=== PATIENT | female | born 1950 | race Caucasian/White ===

== ENCOUNTER 2018-08-14 16:44 | Inpatient (IN) ==
--- NOTE | 2018-08-14 17:42 | Emergency Department Note ---
Disposition Clinical Impression: Right arm pain, Right arm cellulitis Disposition: Admitted As Inpatient Condition: Good Time of Disposition: 18:56 General Adult HPI - General Chief complaint: ED Extremity Injury, Upper Stated complaint: Right arm knot,S/P surgery Time Seen by Provider: 08/14/18 16:49 Source: patient, family Limitations: no limitations Nursing Notes Reviewed: Yes Vital Signs Reviewed: Yes - History of Present Illness HPI Narrative: Patient is a 68-year-old female presenting with right arm pain. Patient had right humerus fracture in February, had right humeral fracture revision performed by Dr. Frias, in May. She states that this is been going well, however has yet to start PT. She states however today she noticed erythema with pain to the right upper extremity near the incision site. She states that she called Dr. Frias's office, they requested that she go to the ER for further evaluation and assessment. Patient states that she has had pain throughout the right shoulder, since the surgery, however over the past day this is significantly increased. Patient denies fever, chills, nausea, vomiting chest pain, shortness of breath or hemoptysis. Patient has no history of DVT or PE. She is being currently treated for active CML. She is not on a blood thinner. Family members in the room also states that the patient has had a white count, noted by PCP yesterday. Patient denies any active drainage or abscess near the location. No recent illness. Patient denies any weakness, numbness, tingling or change in sensation throughout the right arm. No trauma, no fall Pain Scale: 3 - Related Data Allergies Allergy/AdvReac Type Severity Reaction Status Date / Time latex AdvReac Blister Verified 08/15/18 10:18 ondansetron AdvReac "SEVERE Verified 08/15/18 10:18 HEADACHE" Sulfa (Sulfonamide AdvReac Rash, HIVES Verified 08/15/18 10:18 Antibiotics) All systems ED: reviewed and negative except as stated. Review of Systems: As Per HPI Constitutional: Denies: fever, chills, weakness, weight change ENT ED: Denies: ear pain, throat pain, dental pain, hearing loss, epistaxis, congestion, dysphagia Cardiovascular: Denies: chest pain, palpitations, dyspnea on exertion, edema, syncope Respiratory: Denies: cough, dyspnea, wheezes, hemoptysis, stridor Gastrointestinal: Denies: abdominal pain, nausea, vomiting, diarrhea, constipation, hematemesis, melena, hematochezia Genitourinary: Denies: dysuria, frequency, hematuria, discharge Musculoskeletal: Reports: other (Right arm pain and redness) Integumentary: Denies: rash, abrasion, lesions Neurological: Denies: headache, weakness, numbness, paresthesias, confusion, abnormal gait, vertigo Psychiatric: Denies: anxiety, depression, suicidal thoughts, homicidal thoughts, auditory hallucinations, visual hallucinations Endocrine: Denies: fatigue Hematological/Lymphatic: Denies: easy bleeding, easy bruising Past Medical History - Past Medical History Attestation: Yes The following information was validated with the patient. Source: patient Medical history: Reports: asthma, cancer, COPD, hyperlipidemia, hypertension, other Surgical history: Reports: cholecystectomy, other (gastric bypass) Psychiatric history: Reports: anxiety, depression - Social History Smoking Status: Never smoker Smokeless Tobacco Status: No Alcohol use: Reports: none Drug use: Reports: none Physical Exam - General Limitations: no limitations General appearance: alert, in no apparent distress - Head Head exam: atraumatic, normocephalic, normal inspection - Eye Eye exam: Present: normal appearance, PERRL, EOMI - ENT ENT exam: normal exam, normal oropharynx, mucous membranes moist - Neck Neck exam: Present: normal inspection, full ROM, trachea midline - Chest Chest inspection: Present: normal inspection, symmetric chest wall rise - Respiratory Respiratory exam: Present: normal lung sounds bilaterally. Absent: respiratory distress, wheezes - Cardiovascular Cardiovascular exam: Present: regular rate, normal rhythm, normal heart sounds - Abdominal Exam Abdominal exam: Present: soft, Non-Tender. Absent: tenderness, distention, guarding, rebound, rigidity - Extremities Exam Extremities exam: Present: normal capillary refill, other (Patient has incision scar along the right anterior shoulder, there is no erythema or redness along the incision scar, appears to be well healing, just distal to this there is a 3 x 3 cm region of induration and erythema with tenderness to palpation and warmth, no fluctuance ) - Expanded Lower Extremity Exam Neurovascular/Tendon exam: Absent: motor deficit, sensory deficit, tendon deficit - Back Exam Back exam: Present: normal inspection, full ROM. Absent: tenderness - Neurological Exam Neurological exam: Present: alert, oriented X3 - Psychiatric Psychiatric exam: Present: normal affect, normal mood - Skin Skin exam: Present: warm, dry, intact, normal color Course Vital Signs Temperature 98.6 F 08/14/18 16:54 Pulse Rate 67 08/14/18 16:54 Respiratory Rate 16 08/14/18 16:54 Blood Pressure 145/81 08/14/18 16:54 O2 Sat by Pulse Oximetry 98 08/14/18 16:54 Temperature 98.6 F 08/14/18 17:08 Pulse Rate 67 08/14/18 17:08 Respiratory Rate 16 08/14/18 17:08 Blood Pressure 145/81 08/14/18 17:08 O2 Sat by Pulse Oximetry 98 08/14/18 17:08 Oxygen Delivery Oxygen Delivery Room Air Medical Decision Making - MDM Narrative Medical decision making narrative: Patient is a 68-year-old female presenting with right upper arm swelling and pain. Patient is status post right humeral fracture revision by Dr. hampton, this performed in May, fracture occurred in February. Patient states that she has had one day of swelling and redness to the right anterior arm. She states that her PCP checked her blood work yesterday and she had a leukocytosis of 15. She denies fever or chills. She states she does have pain to the area. She does not have any weakness, numbness or chilling. On examination there is a 3 cm x 3 cm erythematous and warm location to the anterior right arm. No focal neurological signs or symptoms. Venous ultrasound was performed, remarked to be negative for DVT or SVT. X-ray was performed of the right humerus which shows concern for hardware infection. CT with contrast was performed. CBC does show a slight leukocytosis of 13. We will start her on vancomycin and cefepime. At this point in time, patient has been signed out to the evening team. Please refer to their MDM and further disposition and evaluation. Suspect this patient will be admitted for further evaluation and treatment and will need orthopedic consult. - Medical Records Medical records reviewed: Yes I reviewed the patient's medical records. - Lab Data Lab results reviewed: Yes I reviewed the patient's lab results. Result diagrams: 08/16/18 04:58 08/16/18 04:58 Lab Results 08/14/18 08/14/18 08/14/18 Range/Units 17:53 17:53 17:53 WBC 13.7 H (4.3-11.1) K/mcL RBC 3.68 L (3.82-4.97) M/mcL Hgb 10.2 L (11.5-15.4) g/dL Hct 31.5 L (35.3-44.9) % MCV 85.6 (83.0-100.0) fL MCH 27.7 L (28.0-33.3) pg MCHC 32.4 (31.6-35.5) g/dL RDW 14.3 (11.5-14.5) % Plt Count 250 (140-400) K/mcL MPV 10.3 (9.4-12.4) fL Immature Gran % 0.4 (0-4) % Seg Neutrophils % 77.9 % Lymphocytes % 14.4 % Monocytes % 6.3 % Eosinophils % 0.8 % Basophils % 0.2 % Neutrophils # 10.6 H (1.6-8.9) K/mcL Lymphocytes # 2.0 (0.6-4.6) K/mcL Monocytes # 0.9 (0.0-1.3) K/mcL Eosinophils # 0.1 (0.0-0.6) K/mcL Basophils # 0.0 (0.0-0.2) K/mcL ESR 34 H (0-15) mm/hr PT 11.1 (9.4-12.1) Seconds INR 1.0 APTT 34.1 (26.0-36.0) Seconds Sodium (136-145) mEq/L Potassium (3.5-5.1) mEq/L Chloride (98-107) mEq/L Carbon Dioxide (23-29) mEq/L BUN (8-23) mg/dL Creatinine (0.60-1.20) mg/dL Est GFR ( Amer) (> 60) Est GFR (Non-Af Amer) (> 60) BUN/Creatinine Ratio (6-26) Glucose (70-105) mg/dL Calculated Osmolality (280-300) Calcium (8.6-10.3) mg/dL C-Reactive Protein (Less than 10) mg/L 08/14/18 Range/Units 17:53 WBC (4.3-11.1) K/mcL RBC (3.82-4.97) M/mcL Hgb (11.5-15.4) g/dL Hct (35.3-44.9) % MCV (83.0-100.0) fL MCH (28.0-33.3) pg MCHC (31.6-35.5) g/dL RDW (11.5-14.5) % Plt Count (140-400) K/mcL MPV (9.4-12.4) fL Immature Gran % (0-4) % Seg Neutrophils % % Lymphocytes % % Monocytes % % Eosinophils % % Basophils % % Neutrophils # (1.6-8.9) K/mcL Lymphocytes # (0.6-4.6) K/mcL Monocytes # (0.0-1.3) K/mcL Eosinophils # (0.0-0.6) K/mcL Basophils # (0.0-0.2) K/mcL ESR (0-15) mm/hr PT (9.4-12.1) Seconds INR APTT (26.0-36.0) Seconds Sodium 139 (136-145) mEq/L Potassium 4.5 (3.5-5.1) mEq/L Chloride 106 (98-107) mEq/L Carbon Dioxide 26 (23-29) mEq/L BUN 22 (8-23) mg/dL Creatinine 0.85 (0.60-1.20) mg/dL Est GFR ( Amer) > 60 (> 60) Est GFR (Non-Af Amer) > 60 (> 60) BUN/Creatinine Ratio 26 (6-26) Glucose 107 H (70-105) mg/dL Calculated Osmolality 292 (280-300) Calcium 9.2 (8.6-10.3) mg/dL C-Reactive Protein 13 H (Less than 10) mg/L - Radiology Data Radiology results reviewed: Yes I reviewed the patient's radiology results. Humerus X-Ray 08/14/18 17:38 IMPRESSION: Lateral soft tissue swelling with some patchy lucency of the proximal humerus. Findings are concerning for hardware infection. Consider CT or tagged white blood cell study for further evaluation. D/ / Willie Winn / Willie Winn Interpreting Provider: Willie Winn S.B.ATeodoraR. - Maida Situation: Demographics, MOA Background: Presenting Complaint, Relevant PMH, Meds, & Allergies Assessment: Vital Signs, Course and respsone to treatment, Exam Concerns, P atient/Family Expectation, Pertinant Lab Results, Outstanding Labs Recommendation: Barrier(s) to disposition, Recommendation based on pending studies, treatments, or consults Maida Report Given to: Dr. Acevedo and Dr. Morris Bey Repor Time: 18:57 Attestation Statement - Attestation Attestation: I, Tyler Bhatti, examined this patient and my medical decision-making was reviewed with the DIRECTOR TEEN POST/PA/Advanced Practice Nurse/Resident Physician. I agree with the documented findings, disposition and treatment plan as described except to the extent set forth below. 68-year-old female presents emergency Department with concerns of pain to the right upper shoulder. Patient is status post reconstruction of the right humeral head 2-3 months ago. Patient states within the past 24 hours she developed erythema, edema, pain to the right proximal upper extremity. Denies recent trauma. Denies fever, chills, nausea, vomiting, diarrhea. Denies chest pain or shortness of breath or palpitations. There is no syncopal episodes. Unlikely a PE. No history of PE in the past. Does not take anticoagulant medication. Ultrasound of the right upper extremity was negative for DVT or SVT. Laboratory evaluation did not reveal significant abnormality other than mild leukocytosis and mild anemia. CT of the right shoulder pending for further evaluation of possible osteomyelitis versus fracture. Patient care will be transferred to Dr. Acevedo pending imaging results and disposition.
[2018-08-14 18:07] LABS: Basophils % 0.2 %; Eosinophils # 0.1 K/mcL (0.0-0.6); Eosinophils % 0.8 %; Hematocrit 31.5 % (35.3-44.9); Hemoglobin 10.2 g/dL (11.5-15.4); Immature Granulocytes % 0.4 % (0-4); Lymphocytes % 14.4 %; Mean Corpuscular HGB Conc 32.4 g/dL (31.6-35.5); Mean Corpuscular Hemoglobin 27.7 pg (28.0-33.3); Mean Corpuscular Volume 85.6 fL (83.0-100.0); Mean Platelet Volume 10.3 fL (9.4-12.4); Monocytes # 0.9 K/mcL (0.0-1.3); Monocytes % 6.3 %; Neutrophils # 10.6 K/mcL (1.6-8.9); Platelet Count 250 K/mcL (140-400); Red Blood Count 3.68 M/mcL (3.82-4.97); Red Cell Distribution Width 14.3 % (11.5-14.5); Segmented Neutrophils % 77.9 %
[2018-08-14 18:14] LABS: Prothrombin Time 11.1 Seconds (9.4-12.1)
[2018-08-14 18:17] LABS: Activated Partial Thrombo Time 34.1 Seconds (26.0-36.0)
[2018-08-14 18:28] LABS: BUN/Creatinine Ratio 26 (6-26); Blood Urea Nitrogen 22 mg/dL (8-23); C-Reactive Protein 13 mg/L (Less than 10); Calcium 9.2 mg/dL (8.6-10.3); Carbon Dioxide 26 mEq/L (23-29); Chloride 106 mEq/L (98-107); Glucose 107 mg/dL (70-105); Osmolality,Calculated 292 (280-300); Potassium 4.5 mEq/L (3.5-5.1); Sodium 139 mEq/L (136-145); eGFR For Non-African Americans > 60 (> 60)
[2018-08-14] MEDS ORDERED: Isovue-370 500 ML BOTTLE IVP ONE (18:34)
[2018-08-14] MEDS ORDERED: Piperacillin/Tazobactam 3.375 GM in 0.9 % Sodium Chloride Mini Bag 100 ML IVPB ONE (20:10)
--- NOTE | 2018-08-14 20:13 | Emergency Department Note ---
Disposition Clinical Impression: Right arm pain, Right arm cellulitis Disposition: Admitted As Inpatient Condition: Good Referrals: Nolberto Temple DO [Primary Care Provider] - Forms: ED Satisfaction Letter General Adult HPI - General Chief complaint: ED Extremity Injury, Upper Stated complaint: Right arm knot,S/P surgery Time Seen by Provider: 08/14/18 16:49 Source: patient, family Limitations: no limitations - History of Present Illness Pain Scale: 3 - Related Data Allergies Allergy/AdvReac Type Severity Reaction Status Date / Time latex AdvReac Blister Verified 08/14/18 16:57 ondansetron AdvReac Headache Verified 08/14/18 16:57 Sulfa (Sulfonamide AdvReac Rash Verified 08/14/18 16:57 Antibiotics) Constitutional: Denies: fever, chills, weakness, weight change ENT ED: Denies: ear pain, throat pain, dental pain, hearing loss, epistaxis, congestion, dysphagia Cardiovascular: Denies: chest pain, palpitations, dyspnea on exertion, edema, syncope Respiratory: Denies: cough, dyspnea, wheezes, hemoptysis, stridor Gastrointestinal: Denies: abdominal pain, nausea, vomiting, diarrhea, constipation, hematemesis, melena, hematochezia Genitourinary: Denies: dysuria, frequency, hematuria, discharge Musculoskeletal: Reports: other (Right arm pain and redness) Integumentary: Denies: rash, abrasion, lesions Neurological: Denies: headache, weakness, numbness, paresthesias, confusion, abnormal gait, vertigo Psychiatric: Denies: anxiety, depression, suicidal thoughts, homicidal thoughts, auditory hallucinations, visual hallucinations Endocrine: Denies: fatigue Hematological/Lymphatic: Denies: easy bleeding, easy bruising Past Medical History - Past Medical History Medical history: Reports: asthma, cancer, COPD, hyperlipidemia, hypertension, other Surgical history: Reports: cholecystectomy, other (gastric bypass) Psychiatric history: Reports: anxiety, depression - Social History Smoking Status: Never smoker Smokeless Tobacco Status: No Alcohol use: Reports: none Drug use: Reports: none Physical Exam - General Limitations: no limitations General appearance: alert, in no apparent distress Course Vital Signs Temperature 98.6 F 08/14/18 16:54 Pulse Rate 67 08/14/18 16:54 Respiratory Rate 16 08/14/18 16:54 Blood Pressure 145/81 08/14/18 16:54 O2 Sat by Pulse Oximetry 98 08/14/18 16:54 Temperature 98.6 F 08/14/18 17:08 Pulse Rate 67 08/14/18 17:08 Respiratory Rate 16 08/14/18 17:08 Blood Pressure 145/81 08/14/18 17:08 O2 Sat by Pulse Oximetry 98 08/14/18 17:08 Oxygen Delivery Oxygen Delivery Room Air Medical Decision Making - Lab Data Result diagrams: 08/14/18 17:53 08/14/18 17:53 Lab Results 08/14/18 08/14/18 08/14/18 Range/Units 17:53 17:53 17:53 WBC 13.7 H (4.3-11.1) K/mcL RBC 3.68 L (3.82-4.97) M/mcL Hgb 10.2 L (11.5-15.4) g/dL Hct 31.5 L (35.3-44.9) % MCV 85.6 (83.0-100.0) fL MCH 27.7 L (28.0-33.3) pg MCHC 32.4 (31.6-35.5) g/dL RDW 14.3 (11.5-14.5) % Plt Count 250 (140-400) K/mcL MPV 10.3 (9.4-12.4) fL Immature Gran % 0.4 (0-4) % Seg Neutrophils % 77.9 % Lymphocytes % 14.4 % Monocytes % 6.3 % Eosinophils % 0.8 % Basophils % 0.2 % Neutrophils # 10.6 H (1.6-8.9) K/mcL Lymphocytes # 2.0 (0.6-4.6) K/mcL Monocytes # 0.9 (0.0-1.3) K/mcL Eosinophils # 0.1 (0.0-0.6) K/mcL Basophils # 0.0 (0.0-0.2) K/mcL ESR 34 H (0-15) mm/hr PT 11.1 (9.4-12.1) Seconds INR 1.0 APTT 34.1 (26.0-36.0) Seconds Sodium (136-145) mEq/L Potassium (3.5-5.1) mEq/L Chloride (98-107) mEq/L Carbon Dioxide (23-29) mEq/L BUN (8-23) mg/dL Creatinine (0.60-1.20) mg/dL Est GFR ( Amer) (> 60) Est GFR (Non-Af Amer) (> 60) BUN/Creatinine Ratio (6-26) Glucose (70-105) mg/dL Calculated Osmolality (280-300) Calcium (8.6-10.3) mg/dL C-Reactive Protein (Less than 10) mg/L 08/14/18 Range/Units 17:53 WBC (4.3-11.1) K/mcL RBC (3.82-4.97) M/mcL Hgb (11.5-15.4) g/dL Hct (35.3-44.9) % MCV (83.0-100.0) fL MCH (28.0-33.3) pg MCHC (31.6-35.5) g/dL RDW (11.5-14.5) % Plt Count (140-400) K/mcL MPV (9.4-12.4) fL Immature Gran % (0-4) % Seg Neutrophils % % Lymphocytes % % Monocytes % % Eosinophils % % Basophils % % Neutrophils # (1.6-8.9) K/mcL Lymphocytes # (0.6-4.6) K/mcL Monocytes # (0.0-1.3) K/mcL Eosinophils # (0.0-0.6) K/mcL Basophils # (0.0-0.2) K/mcL ESR (0-15) mm/hr PT (9.4-12.1) Seconds INR APTT (26.0-36.0) Seconds Sodium 139 (136-145) mEq/L Potassium 4.5 (3.5-5.1) mEq/L Chloride 106 (98-107) mEq/L Carbon Dioxide 26 (23-29) mEq/L BUN 22 (8-23) mg/dL Creatinine 0.85 (0.60-1.20) mg/dL Est GFR ( Amer) > 60 (> 60) Est GFR (Non-Af Amer) > 60 (> 60) BUN/Creatinine Ratio 26 (6-26) Glucose 107 H (70-105) mg/dL Calculated Osmolality 292 (280-300) Calcium 9.2 (8.6-10.3) mg/dL C-Reactive Protein 13 H (Less than 10) mg/L Critical Care Time Critical Care Time: Yes Total Critical Care Time: 40 Attestation: Critical care time of 40 minutes spent in consultation and meeting with family members for over 30 minutes Attestation Statement - Attestation Attestation: I examined this patient and my medical decision-making was reviewed with the Resident Physician. I agree with the documented findings, disposition and treatment plan as described except to the extent set forth below. 68-year-old female presented to the emergency room for concerns for right arm redness and pain. Started earlier today spontaneously. She had a recent right humeral head were repair done by orthopedics up in [place]. She had suffered a right humeral head fracture in February and had this repaired many months later. It appears as though she has developed a right upper extremity cellulitis with some increasing redness and pain and swelling to this right upper extremity. Concerns for possible hardware infection however the CT was not conclusive. They were unable to decipher whether she had any findings of infection versus postoperative findings. Patient does have a complicated history. She reports a history of C. difficile colitis secondary to antibiotics in the past. At this time the family would like to stay for observation and I am in agreement with needing IV antibiotics based on her history and the fact that she has got underlying hardware in this region that could be infected. Patient will be given IV vancomycin and IV Zosyn. Blood cultures were obtained. I did have a [id number] conversation with the patient and her family members for over 30 minutes in the room. The area of redness the right upper extremity will be outlined with a marker to assess any further spreading cellulitis.
--- NOTE | 2018-08-14 20:16 | Emergency Department Note ---
Disposition Clinical Impression: Right arm pain, Right arm cellulitis Disposition: Admitted As Inpatient Condition: Good Referrals: Nolberto Temple DO [Primary Care Provider] - Forms: ED Satisfaction Letter General Adult HPI - General Chief complaint: ED Extremity Injury, Upper Stated complaint: Right arm knot,S/P surgery Time Seen by Provider: 08/14/18 16:49 Source: patient, family Limitations: no limitations Nursing Notes Reviewed: Yes Vital Signs Reviewed: Yes - History of Present Illness HPI Narrative: 68 yo female received in sign out from Dr. Stafford and Dr. Bhatti. She has a PMHx of CML, C. diff colitis, and joint infections after surgery. She presents with a painful right arm with overlying erythema. She had a right proximal humeral head repair done in May by Dr. Tovar. She has an appointment with him on Monday but when she called today he told her to come be evaluated for a blood clot or infection. She has not had fevers at home and is not nauseous or vomiting. Pain Scale: 3 - Related Data Allergies Allergy/AdvReac Type Severity Reaction Status Date / Time latex AdvReac Blister Verified 08/14/18 16:57 ondansetron AdvReac Headache Verified 08/14/18 16:57 Sulfa (Sulfonamide AdvReac Rash Verified 08/14/18 16:57 Antibiotics) All systems ED: reviewed and negative except as stated. Review of Systems: As Per HPI Constitutional: Denies: fever, chills, weakness, weight change ENT ED: Denies: ear pain, throat pain, dental pain, hearing loss, epistaxis, congestion, dysphagia Cardiovascular: Denies: chest pain, palpitations, dyspnea on exertion, edema, syncope Respiratory: Denies: cough, dyspnea, wheezes, hemoptysis, stridor Gastrointestinal: Denies: abdominal pain, nausea, vomiting, diarrhea, constipation, hematemesis, melena, hematochezia Genitourinary: Denies: dysuria, frequency, hematuria, discharge Musculoskeletal: Reports: other (Right arm pain and redness) Integumentary: Denies: rash, abrasion, lesions Neurological: Denies: headache, weakness, numbness, paresthesias, confusion, abn ormal gait, vertigo Psychiatric: Denies: anxiety, depression, suicidal thoughts, homicidal thoughts, auditory hallucinations, visual hallucinations Endocrine: Denies: fatigue Hematological/Lymphatic: Denies: easy bleeding, easy bruising Past Medical History - Past Medical History Medical history: Reports: asthma, cancer, COPD, hyperlipidemia, hypertension, other Surgical history: Reports: cholecystectomy, other (gastric bypass) Psychiatric history: Reports: anxiety, depression - Social History Smoking Status: Never smoker Smokeless Tobacco Status: No Alcohol use: Reports: none Drug use: Reports: none Physical Exam Well circumscribed area of erythema on distal lateral right upper arm that is warm to the touch. Pt has pain with movement of the extremity. No area of fluctuance, crepatance, or notable drainage. The Wound from the surgery appears well healed without drainage and the area of erythema does not connect to the scar. Pt has normal sensation of distal right arm and hand. - General Limitations: no limitations General appearance: alert, in no apparent distress - Head Head exam: atraumatic, normocephalic - Eye Eye exam: Present: normal appearance, PERRL, EOMI - ENT ENT exam: normal exam - Chest Chest inspection: Present: normal inspection - Respiratory Respiratory exam: Present: normal lung sounds bilaterally - Cardiovascular Cardiovascular exam: Present: regular rate, normal rhythm - Abdominal Exam Abdominal exam: Present: soft, Non-Tender. Absent: distention, guarding, rebound, rigidity - Neurological Exam Neurological exam: Present: alert, oriented X3 - Psychiatric Psychiatric exam: Present: normal affect, normal mood - Skin Skin exam: Present: warm, dry Course Vital Signs Temperature 98.6 F 08/14/18 16:54 Pulse Rate 67 08/14/18 16:54 Respiratory Rate 16 08/14/18 16:54 Blood Pressure 145/81 08/14/18 16:54 O2 Sat by Pulse Oximetry 98 08/14/18 16:54 Temperature 98.6 F 08/14/18 17:08 Pulse Rate 67 08/14/18 17:08 Respiratory Rate 16 08/14/18 17:08 Blood Pressure 145/81 08/14/18 17:08 O2 Sat by Pulse Oximetry 98 08/14/18 17:08 Oxygen Delivery Oxygen Delivery Room Air Medical Decision Making - MDM Narrative Medical decision making narrative: Pt received after workup had been started on this patient, which included lab work and a RUE XR showing signs concerning for infection. CT soft tissue has been ordered and is pending, and blood cultures will be drawn. 2021 - Lab work significant for an elevated WBC and CRP. CT scan shows possible area of infection vs post surgical changes. A lengthy conversation was had with the patient and her daughter about admission with IV antibiotics vs transfer to [facility] vs DC on oral abx with ortho follow up. The family is worried about recurrence of C. diff with administration of antibiotics but are also worried about progressing infection which will eventually involve the hardware. They are agreeable at this time to admit the patient on vancomycin and zosyn as the erythema has spread since this morning and the arm is causing the patient significant pain. We will sebas the area of erythema and begin antibiotics. Hospitalist has been paged for admission. 2031 - Dr. Martinez has accepted the patient for admission. - Medical Records Medical records reviewed: Yes I reviewed the patient's medical records. - Lab Data Lab results reviewed: Yes I reviewed the patient's lab results. Result diagrams: 08/14/18 17:53 08/14/18 17:53 Lab Results 08/14/18 08/14/18 08/14/18 Range/Units 17:53 17:53 17:53 WBC 13.7 H (4.3-11.1) K/mcL RBC 3.68 L (3.82-4.97) M/mcL Hgb 10.2 L (11.5-15.4) g/dL Hct 31.5 L (35.3-44.9) % MCV 85.6 (83.0-100.0) fL MCH 27.7 L (28.0-33.3) pg MCHC 32.4 (31.6-35.5) g/dL RDW 14.3 (11.5-14.5) % Plt Count 250 (140-400) K/mcL MPV 10.3 (9.4-12.4) fL Immature Gran % 0.4 (0-4) % Seg Neutrophils % 77.9 % Lymphocytes % 14.4 % Monocytes % 6.3 % Eosinophils % 0.8 % Basophils % 0.2 % Neutrophils # 10.6 H (1.6-8.9) K/mcL Lymphocytes # 2.0 (0.6-4.6) K/mcL Monocytes # 0.9 (0.0-1.3) K/mcL Eosinophils # 0.1 (0.0-0.6) K/mcL Basophils # 0.0 (0.0-0.2) K/mcL ESR 34 H (0-15) mm/hr PT 11.1 (9.4-12.1) Seconds INR 1.0 APTT 34.1 (26.0-36.0) Seconds Sodium (136-145) mEq/L Potassium (3.5-5.1) mEq/L Chloride (98-107) mEq/L Carbon Dioxide (23-29) mEq/L BUN (8-23) mg/dL Creatinine (0.60-1.20) mg/dL Est GFR ( Amer) (> 60) Est GFR (Non-Af Amer) (> 60) BUN/Creatinine Ratio (6-26) Glucose (70-105) mg/dL Calculated Osmolality (280-300) Calcium (8.6-10.3) mg/dL C-Reactive Protein (Less than 10) mg/L 08/14/18 Range/Units 17:53 WBC (4.3-11.1) K/mcL RBC (3.82-4.97) M/mcL Hgb (11.5-15.4) g/dL Hct (35.3-44.9) % MCV (83.0-100.0) fL MCH (28.0-33.3) pg MCHC (31.6-35.5) g/dL RDW (11.5-14.5) % Plt Count (140-400) K/mcL MPV (9.4-12.4) fL Immature Gran % (0-4) % Seg Neutrophils % % Lymphocytes % % Monocytes % % Eosinophils % % Basophils % % Neutrophils # (1.6-8.9) K/mcL Lymphocytes # (0.6-4.6) K/mcL Monocytes # (0.0-1.3) K/mcL Eosinophils # (0.0-0.6) K/mcL Basophils # (0.0-0.2) K/mcL ESR (0-15) mm/hr PT (9.4-12.1) Seconds INR APTT (26.0-36.0) Seconds Sodium 139 (136-145) mEq/L Potassium 4.5 (3.5-5.1) mEq/L Chloride 106 (98-107) mEq/L Carbon Dioxide 26 (23-29) mEq/L BUN 22 (8-23) mg/dL Creatinine 0.85 (0.60-1.20) mg/dL Est GFR ( Amer) > 60 (> 60) Est GFR (Non-Af Amer) > 60 (> 60) BUN/Creatinine Ratio 26 (6-26) Glucose 107 H (70-105) mg/dL Calculated Osmolality 292 (280-300) Calcium 9.2 (8.6-10.3) mg/dL C-Reactive Protein 13 H (Less than 10) mg/L - Radiology Data Radiology results reviewed: Yes I reviewed the patient's radiology results.
[2018-08-14] MEDS ORDERED: Acetaminophen 325 MG TABLET PO PRN (21:40)
[2018-08-14] MEDS ORDERED: Naloxone 0.4 MG/ML INJ IVP PRN (21:40)
[2018-08-14] MEDS ORDERED: *HR* HYDROcodone/Acet 5/325 mg TABLET PO PRN (21:40)
[2018-08-14] MEDS ORDERED: Ringers Solution, Lactated 1,000 ML IVC SCH (21:45)
[2018-08-14] MEDS ORDERED: ALPRAZolam 1 MG TABLET PO PRN (22:37)
[2018-08-14] MEDS: Gabapentin 100 MG CAPSULE PO SCH (22:56)
[2018-08-14] MEDS: *HR* Heparin 5,000 UNIT/ML VIAL SQ SCH (22:56)
[2018-08-14] MEDS: Lactobacillus 1 EACH CAP.SPRINK PO SCH (22:56)
[2018-08-14] MEDS: *HR* OxyCODONE/APAP 5/325 TABLET PO PRN (22:57)
[2018-08-14] MEDS: Vancomycin Oral Soln 125 MG/2.5 ML UDC PO SCH (22:57)
[2018-08-14] MEDS: BOSUTINIB PO SCH (22:57)
--- NOTE | 2018-08-14 23:03 | Internal Med History&Physical ---
Date of Encounter: 08/14/18 Time of Encounter: 23:00 Internal Medicine - H&P: HPI Chief complaint: right arm pain/swelling Admitted From: Home Plans for Post Hospital Care: Home History of present illness: Nishi Monroy is a 68-year-old woman with CML on bosutinib and sarcoidosis on prednisone who has a history of TKA many years ago and suffered a post-surgical hardware infection. She also suffered from C. difficile colitis 2 years ago. She had a fracture of the proximal aspect of her right humerus in January 2018 but did not undergo surgical intervention until May 2018 with a lateral plate and screw fixation. She comes into the ER on advised by her orthopedic surgeon after she complained of noticing erythema on her right arm as well as pain with limitation in her shoulder joint movement due to new pain. As per her daughter these findings increased from yesterday until today. She denied any fever or chills however and there is no active drainage or abscess formation. In the ER duplex ultrasonography was done and ruled out venous thrombotic disease. An x-ray was done that confirmed lateral soft tissue swelling but also patchy lucencies around the hardware that are concerning for a n infectious process. The suspicious lucencies were also noted on CT scan prompting concern for an infectious process. Lab work revealed her leukocyte count of 13.7, ESR 34 and CRP 13. She was started on broad-spectrum antibiotics and is now admitted for further observation. Past Med Surg Social Fam HX - Past Medical History Medical history: asthma, cancer, COPD, hyperlipidemia, hypertension, other Additional medical history: CML Ca, breast CA Psychiatric history: anxiety, depression - Past Surgical History Surgical History: cholecystectomy, other (gastric bypass) Additional surgical history: Michael repair - Social History Smoking Status: Never smoker Smokeless Tobacco Status: No Alcohol use: none Drug use: none Internal Medicine - H&P: Meds ALPRAZolam [Xanax 1 MG Tablet] 1 mg PO BID PRN 08/14/18 [History] Bosutinib [Bosulif] 200 mg PO HS 08/14/18 [History] Folic Acid 5 mg PO DAILY 08/14/18 [History] Gabapentin [Neurontin] 100 mg PO TID 08/14/18 [History] Levothyroxine [Synthroid] 150 mcg PO DAILY 08/14/18 [History] Oxycodone HCl/Acetaminophen [Percocet 5-325 mg Tablet] 1 each PO QID PRN 08/14/18 [History] Sertraline [Zoloft] 50 mg PO DAILY 08/14/18 [History] Allergy/AdvReac Type Severity Reaction Status Date / Time latex AdvReac Blister Verified 08/14/18 16:57 ondansetron AdvReac Headache Verified 08/14/18 16:57 Sulfa (Sulfonamide AdvReac Rash Verified 08/14/18 16:57 Antibiotics) All Systems PM: A 10-system review of systems was performed and is negative for pertinent findings except as documented above in the HPI. Family history reviewed and fo und noncontributory. - Constitutional Vitals: Temp Pulse Resp BP Pulse Ox 97.7 F 59 16 156/75 98 08/14/18 21:33 08/14/18 21:33 08/14/18 21:33 08/14/18 21:33 08/14/18 21:33 Exam: Vitals: Reviewed General: Well-developed white female lying comfortably in bed in no acute distress. Skin: Warm and supple. HEENT: Moist mucous membranes. No conjunctivae pallor. Neck: No lymphadenopathy. No JVD. No carotid bruits. No palpable thyroid. Chest: Normal thoracic expansion. Normal breath sounds. Clear to auscultation. Heart: Normal S1 & S2; rhythmic. No rubs or murmurs. Abdomen: Non-distended, soft and non-tender to palpation. No peritoneal reaction. Extremities: Right shoulder surgical incision site without erythema or swelling but limited joint motion due to pain is noted; 3x3cm area of erythema, fluctuance and tenderness noted on the lateral aspect of the midportion of the right arm. Neurological: Awake, alert and oriented to person, place and time. No focal deficits. Psych: Affect appropriate. Internal Med - H&P Results - Labs CBC & Chem 7: 08/14/18 17:53 08/14/18 17:53 Labs: Short CBC 08/14/18 Range/Units 17:53 WBC 13.7 H (4.3-11.1) K/mcL Hgb 10.2 L (11.5-15.4) g/dL Hct 31.5 L (35.3-44.9) % Plt Count 250 (140-400) K/mcL Neutrophils # 10.6 H (1.6-8.9) K/mcL BMP 08/14/18 17:53 Sodium 139 Potassium 4.5 Chloride 106 Carbon Dioxide 26 BUN 22 Creatinine 0.85 Glucose 107 H Calcium 9.2 - Impressions ITS Impressions Humerus X-Ray 08/14/18 17:38 IMPRESSION: Lateral soft tissue swelling with some patchy lucency of the proximal humerus. Findings are concerning for hardware infection. Consider CT or tagged white blood cell study for further evaluation. D/ / Willie Winn / Willie Winn Interpreting Provider: Willie Winn Upper Extremity CT 08/14/18 18:34 IMPRESSION: 1. Lucencies surrounding portions of fixating screws proximally. These could be related to hardware infection but could also reflect sequela of previously placed fixating screws. To differentiate these entities, a combined sulfur colloid and tagged white blood cell study are advised to evaluate for infectious process; MRI would be less sensitive due to the presence of hardware and expected susceptibility artifact. 2. Mild nonspecific soft tissue swelling is evident. 3. No fluid collection or foci of soft tissue air. D/ / 08/14/2018 19:48:32 Willie Winn / jonathan Interpreting Provider: Willie Winn - Assessment and plan (1) Right arm cellulitis Current Visit: Yes Status: Acute Assessment and plan: Complicated cellulitis given the presence of underlying hardware that could potentially be infected given the radiographic changes noted. She is not with florid sigs of sepsis and concerns for decompensation. Her inflammatory markers are not overly elevated. Orthopedic surgery has been consulted and the patient will be seen in the morning. In the interim continue empric abx with vancomycin/piptazo; blood cultures collected. (2) CML (chronic myelocytic leukemia) Current Visit: Yes Status: Acute Assessment and plan: Will continue daily bosutinib; patient to bring medication from home. (3) Sarcoid Current Visit: Yes Status: Acute Assessment and plan: Patient reportedly takes 5mg prednisone daily; pending confirmation. (4) History of Clostridium difficile colitis Current Visit: Yes Status: Acute Assessment and plan: No signs of active disease however given her prior history and current need for empiric antimicrobials, will initiate prophylaxis with oral vancomycin BID dosing. The patient also reports personal success and tolerance to probioics therefore this can be given too. - Time Spent With Patient Total time spent is greater than 50% in coordination of care (as documented) at patient's floor/unit and/or counseling patient: Greater than 35 minutes
[2018-08-15 05:27] LABS: Basophils % 0.3 %; Eosinophils # 0.4 K/mcL (0.0-0.6); Eosinophils % 2.9 %; Hematocrit 28.6 % (35.3-44.9); Hemoglobin 9.4 g/dL (11.5-15.4); Immature Granulocytes % 0.3 % (0-4); Lymphocytes % 23.6 %; Mean Corpuscular HGB Conc 32.9 g/dL (31.6-35.5); Mean Corpuscular Hemoglobin 27.9 pg (28.0-33.3); Mean Corpuscular Volume 84.9 fL (83.0-100.0); Mean Platelet Volume 10.2 fL (9.4-12.4); Monocytes % 7.5 %; Neutrophils # 8.3 K/mcL (1.6-8.9); Platelet Count 249 K/mcL (140-400); Red Blood Count 3.37 M/mcL (3.82-4.97); Red Cell Distribution Width 14.3 % (11.5-14.5); Segmented Neutrophils % 65.4 %
[2018-08-15 05:48] LABS: BUN/Creatinine Ratio 22 (6-26); Blood Urea Nitrogen 18 mg/dL (8-23); Calcium 8.7 mg/dL (8.6-10.3); Carbon Dioxide 25 mEq/L (23-29); Chloride 109 mEq/L (98-107); Glucose 88 mg/dL (70-105); Osmolality,Calculated 293 (280-300); Potassium 3.8 mEq/L (3.5-5.1); Sodium 141 mEq/L (136-145); eGFR For Non-African Americans > 60 (> 60)
[2018-08-15] MEDS: Piperacillin/Tazobactam 3.375 GM in 0.9 % Sodium Chloride Mini Bag 100 ML IVPB SCH ×3 (06:17→23:05)
[2018-08-15] MEDS: *HR* Heparin 5,000 UNIT/ML VIAL SQ SCH ×3 (06:18→20:59)
--- NOTE | 2018-08-15 07:48 | Orthopedic Consult Note ---
Date of Encounter: 08/15/18 Time of Encounter: 07:44 Assessment and Plan (1) Right arm cellulitis Current Visit: Yes Status: Acute I did have a discussion with the patient regarding the diagnosis. She does at least have a superficial cellulitis of her right arm which may involve the hardware as well. Options include antibiotics and observation versus exploration with debridement and deep cultures. I will discuss the case with Dr. Frias to see how he would like to proceed, which may include antibiotics and careful follow-up with him on Monday. A page has been placed out to his answering service and I am waiting for her applied. I will update the plan as new information comes in. History of Present Illness HPI: Ms. Monroy is a 68 year old female who is currently admitted to the hospitalist. She does have a history of a right proximal humerus fracture which happened in the summer. She underwent open reduction and internal fixation in late May [address] Frias at [facility]. She indicates that her postoperative recovery has been uneventful and she has a follow-up visit with Dr. Frias on Monday of this week. The patient indicates that over the last day or 2 she has noticed pain and redness just distal to her incision. The patient informs me that she called Dr. Frias and was instructed to go to the [place] emergency department. The patient was subsequently admitted to the hospitalist with concerns for infected hardware. I did receive a consult last night after the patient had been on the floor. Upon evaluating the patient this morning she complains of isolated achy pains localized to the incisional area as well as just distal to this. She feels tightness with any motion of the shoulder but no significant pain. She denies any new injuries or complaints. She denies any numbness, tingling, or any other associated signs or symptoms or modifying factors. 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 She fully recovered from this without significant long-term sequelae. Past Med Surg Social Fam HX - Past Medical History Medical history: asthma, cancer, COPD, hyperlipidemia, hypertension, other Additional medical history: CML Ca, breast CA Psychiatric history: anxiety, depression - Past Surgical History Surgical History: cholecystectomy, other Additional surgical history: Michael repair - Social History Smoking Status: Never smoker Smokeless Tobacco Status: No Alcohol use: none Drug use: none - Family History Mother Age at : 54 Cause of : Cancer Hx Family Cardiac Disorders: Yes (CHF, HTN) Hx Family Respiratory Disorders: No Hx Family Cancer: Yes (Breast) Hx Family GI Disorders: No Hx Family Genitourinary Disorders: No Hx Family Endocrine Disorder: Yes (DM) Hx Family Musculoskeletal Disorders: No Hx Family Neuromuscular Disorders: No Hx Family Neurologic Disorders: No Hx Family HEENT Disorders: No Hx Family Autoimmune Disorders: No Hx Family Reproductive Disorders: No Hx Family Psychosocial Disorders: No Hx Family Medical Disorders: No Father Hx Family Cardiac Disorders: Yes (RI, CVA, HTN) Hx Family Respiratory Disorders: Yes (COPD) Hx Family Cancer: Yes (Lung) Hx Family GI Disorders: No Hx Family Genitourinary Disorders: No Hx Family Endocrine Disorder: No Hx Family Musculoskeletal Disorders: No Hx Family Neuromuscular Disorders: No Hx Family Neurologic Disorders: No Hx Family HEENT Disorders: No Hx Family Autoimmune Disorders: No Hx Family Reproductive Disorders: No Hx Family Psychosocial Disorders: No Hx Family Medical Disorders: No Medications and Allergies ALPRAZolam [Xanax 1 MG Tablet] 1 mg PO BID PRN 08/14/18 [History] Bosutinib [Bosulif] 200 mg PO HS 08/14/18 [History] Folic Acid 5 mg PO DAILY 08/14/18 [History] Gabapentin [Neurontin] 100 mg PO TID 08/14/18 [History] Levothyroxine [Synthroid] 150 mcg PO DAILY 08/14/18 [History] Oxycodone HCl/Acetaminophen [Percocet 5-325 mg Tablet] 1 each PO QID PRN 08/14/18 [History] Sertraline [Zoloft] 50 mg PO DAILY 08/14/18 [History] Allergy/AdvReac Type Severity Reaction Status Date / Time latex AdvReac Blister Verified 08/14/18 16:57 ondansetron AdvReac Headache Verified 08/14/18 16:57 Sulfa (Sulfonamide AdvReac Rash Verified 08/14/18 16:57 Antibiotics) All Systems Reviewed: Constitutional -The patient denies any fevers, chills, or feelings of illness Neurologic -The patient denies any numbness, tingling, or burning pains Physical Exam - Constitutional Vitals: Temp Pulse Resp BP Pulse Ox 97.9 F 56 16 130/69 97 08/15/18 07:13 08/15/18 07:13 08/15/18 07:13 08/15/18 07:13 08/15/18 07:13 Constitutional -Vitals reviewed -The patient is well developed and well nourished. -Mood is pleasant. -The patient is well groomed. Psychiatric -The patient is fully alert and oriented x 3. Respiratory: -Respiratory effort normal Abdomen: -Soft abdomen -Non tender -Non distended: Left upper extremity: -No deformities. The overlying skin is intact. No obvious signs of acute trauma. -No tenderness to palpation throughout. -No significant pain with passive motion of the shoulder, elbow, wrist, and fingers within the limits of the bed. -Able to make an "OK" sign, cross the index and long fingers, and extend the thumb. -Sensation grossly intact to light touch throughout the median, radial, and ulnar distributions. -Radial pulse is present; Fingers have good capillary refill. Right upper extremity: -No deformities. Well-healed deltopectoral incision. -Just distal to the incision there is a 4 cm transverse by 3 cm longitudinal oval-shaped area of redness without underlying induration or fluctuance. -Tenderness to palpation over the deltopectoral incision and over the area of redness. -No significant pain with passive motion of the shoulder, elbow, wrist, and fingers within the limits of the bed. -Able to make an "OK" sign, cross the index and long fingers, and extend the thumb. -Sensation grossly intact to light touch throughout the median, radial, and ulnar distributions. -Radial pulse is present; Fingers have good capillary refill. Left lower extremity: -No deformities. Well-healed total knee incision. No obvious signs of acute trauma. -No tenderness to palpation throughout. -No pain with passive motion of the hip, knee, ankle, and toes within the limits of the bed. -No pain with axial loading of the thigh. -Able to dorsiflex and plantarflex the ankle and toes. -Sensation is grossly intact to light touch throughout the sural, saphenous, superficial peroneal, and deep peroneal distributions. -Toes have good capillary refill. Right lower extremity: -No deformities. The overlying skin is intact. No obvious signs of acute trauma. -No tenderness to palpation throughout. -No pain with passive motion of the hip, knee, ankle, and toes within the limits of the bed. -No pain with axial loading of the thigh. -Able to dorsiflex and plantarflex the ankle and toes. -Sensation is grossly intact to light touch throughout the sural, saphenous, superficial peroneal, and deep peroneal distributions. -Toes have good capillary refill. Diagnostic Imaging: I did personally review and interpret x-rays and the CT scan of the left humerus does demonstrate intact hardware however there are apparent lucencies around the tips of the screws and incomplete union of the fracture. No soft tissue fluid collection identified near the area of redness. Results - Labs Result Diagrams: 08/15/18 04:51 08/15/18 04:51 Labs: Abnormal lab results WBC 12.7 K/mcL (4.3-11.1) H 08/15/18 04:51 RBC 3.37 M/mcL (3.82-4.97) L 08/15/18 04:51 Hgb 9.4 g/dL (11.5-15.4) L 08/15/18 04:51 Hct 28.6 % (35.3-44.9) L 08/15/18 04:51 MCH 27.9 pg (28.0-33.3) L 08/15/18 04:51 ESR 34 mm/hr (0-15) H 08/14/18 17:53 Chloride 109 mEq/L (98-107) H 08/15/18 04:51 C-Reactive Protein 13 mg/L (Less than 10) H 08/14/18 17:53 H & H 08/14/18 08/15/18 Range/Units 17:53 04:51 Hgb 10.2 L 9.4 L (11.5-15.4) g/dL Hct 31.5 L 28.6 L (35.3-44.9) % All other labs normal. Consult Discharge Plan - Plan Referrals: Nolberto Temple DO [Primary Care Provider] -
[2018-08-15] MEDS: Lactobacillus 1 EACH CAP.SPRINK PO SCH ×2 (08:52→20:58)
[2018-08-15] MEDS: Gabapentin 100 MG CAPSULE PO SCH ×3 (08:52→20:58)
[2018-08-15] MEDS: Folic Acid 1 MG TABLET PO SCH (08:52)
[2018-08-15] MEDS: Vancomycin Oral Soln 125 MG/2.5 ML UDC PO SCH ×2 (08:53→20:59)
--- NOTE | 2018-08-15 10:01 | Internal Med Progress Note ---
Hospitalist Progress Note - Encounter Date of Encounter: 08/15/18 Time of Encounter: 10:01 - Subjective Interval History: Patient was examined at bedside currently denies any pain or discomfort however she continues to experience Limited range of motion of her right shoulder. I did review the treatment plan with the patient who verbalized understanding. Patient will require IV therapy as well as possible surgical intervention by orthopedics she will be changed from observation status to inpatient status - Exam Vitals: Temp Pulse Resp BP Pulse Ox 97.9 F 56 16 130/69 97 08/15/18 07:13 08/15/18 07:13 08/15/18 07:13 08/15/18 07:13 08/15/18 07:13 Exam: Vitals: Reviewed General: Well-developed white female lying comfortably in bed in no acute dist ress. Skin: Warm and supple. HEENT: Moist mucous membranes. No conjunctivae pallor. Neck: No lymphadenopathy. No JVD. No carotid bruits. No palpable thyroid. Chest: Normal thoracic expansion. Normal breath sounds. Clear to auscultation. Heart: Normal S1 & S2; rhythmic. No rubs or murmurs. Abdomen: Non-distended, soft and non-tender to palpation. No peritoneal reaction. Extremities: Right shoulder surgical incision site without erythema or swelling but limited joint motion due to pain is noted; 3x3cm area of erythema, fluctuance and tenderness noted on the lateral aspect of the midportion of the right arm. Neurological: Awake, alert and oriented to person, place and time. No focal deficits. Psych: Affect appropriate. - Assessment and Plan (1) Right arm cellulitis Current Visit: Yes Status: Acute Assessment and Plan: Complicated cellulitis given the presence of underlying hardware that could potentially be infected given the radiographic changes noted. She is not with florid sigs of sepsis and concerns for decompensation. Her inflammatory markers are not overly elevated. Orthopedic surgery has been consulted and the patient will be seen in the morning. In the interim continue empric abx with vancomycin/piptazo; blood cultures collected. 08/15 Patient was seen by orthopedics who did discuss case with Dr. Frias of [facility]-orthopedics anticipating to proceed with CT-guided aspiration of the fracture site and ordering a PICC for anticipation of long-term antibiotics we will continue with IV vancomycin and Zosyn. Patient does have follow-up appointment with Dr. Frias on Monday Blood cultures are still pending Continue to elevate right extremity (2) CML (chronic myelocytic leukemia) Current Visit: Yes Status: Acute Assessment and Plan: Will continue daily bosutinib; patient to bring medication from home. 08/15 Continue with bosutinib-patient will bring medication from home (3) Sarcoid Current Visit: Yes Status: Acute Assessment and Plan: Patient reportedly takes 5mg prednisone daily; pending confirmation. Continue with home prednisone (4) History of Clostridium difficile colitis Current Visit: Yes Status: Acute Assessment and Plan: No signs of active disease however given her prior history and current need for empiric antimicrobials, will initiate prophylaxis with oral vancomycin BID dosing. The patient also reports personal success and tolerance to probioics therefore this can be given too. 08/15 Continue with oral vancomycin as well as probiotics - Time Spent with Patient Total time spent is greater than 50% in coordination of care (as documented) at patient's floor/unit and/or counseling patient: Internal Medicine: Result - Labs CBC & Chem 7: 08/15/18 04:51 08/15/18 04:51 Labs: Short CBC 08/14/18 08/15/18 Range/Units 17:53 04:51 WBC 13.7 H 12.7 H (4.3-11.1) K/mcL Hgb 10.2 L 9.4 L (11.5-15.4) g/dL Hct 31.5 L 28.6 L (35.3-44.9) % Plt Count 250 249 (140-400) K/mcL Neutrophils # 10.6 H 8.3 (1.6-8.9) K/mcL BMP 08/14/18 08/15/18 17:53 04:51 Sodium 139 141 Potassium 4.5 3.8 Chloride 106 109 H Carbon Dioxide 26 25 BUN 22 18 Creatinine 0.85 0.83 Glucose 107 H 88 Calcium 9.2 8.7 - ABG Interpretation ABG results: PT/INR, D-dimer PT 11.1 Seconds (9.4-12.1) 08/14/18 17:53 - Impressions Impressions Humerus X-Ray 08/14/18 17:38 IMPRESSION: Lateral soft tissue swelling with some patchy lucency of the proximal humerus. Findings are concerning for hardware infection. Consider CT or tagged white blood cell study for further evaluation. D/ / Willie Winn / Willie Winn Interpreting Provider: Willie Winn Upper Extremity CT 08/14/18 18:34 IMPRESSION: 1. Lucencies surrounding portions of fixating screws proximally. These could be related to hardware infection but could also reflect sequela of previously placed fixating screws. To differentiate these entities, a combined sulfur colloid and tagged white blood cell study are advised to evaluate for infectious process; MRI would be less sensitive due to the presence of hardware and expected susceptibility artifact. 2. Mild nonspecific soft tissue swelling is evident. 3. No fluid collection or foci of soft tissue air. D/ / 08/14/2018 19:48:32 Willie Winn / jonathan Interpreting Provider: Willie Winn Consult Discharge Plan - Plan Referrals: Nolberto Temple DO [Primary Care Provider] - 08/16/18 10:45 am ()
[2018-08-15] MEDS: *HR* OxyCODONE/APAP 5/325 TABLET PO PRN (15:59)
--- NOTE | 2018-08-15 16:55 | Orthopedics Progress Note ---
Date of Encounter: 08/15/18 Time of Encounter: 16:52 - Assessment and Plan (1) Right arm cellulitis Current Visit: Yes Status: Acute Subjective Interval history: S: Patient resting comfortably in bed Pain well-controlled. No new complaints or feelings of illness O: Afebrile on the vital signs are stable No change in the right upper extremity compared to this morning. Small patch of redness unchanged. No fluctuance or induration. Tenderness over the well-healed deltopectoral incision Neurovascularly intact. A: Mild cellulitis to the right arm Possible underlying septic nonunion P: I did discuss the clinical scenario with Dr. Frias [facility]. The patient does have a follow-up visit scheduled with him on Monday. In the meantime he wishes to proceed with CT guided aspiration of the fracture site which I have ordered as well as placement of a PICC in anticipation of probable long-term antibiotics. I also discussed the plan with the hospitalist. Continue IV vancomycin and Zosyn for now. The patient is quite stable. Objective Vital signs: Vital Signs Temp Pulse Resp BP Pulse Ox 08/15/18 15:12 98.2 F 63 15 107/67 98 08/15/18 11:05 98.6 F 64 15 148/80 90 08/15/18 07:13 97.9 F 56 16 130/69 97 08/15/18 03:46 97.8 F 70 16 134/76 97 08/14/18 21:33 97.7 F 59 16 156/75 98 08/14/18 17:08 98.6 F 67 16 145/81 98 08/14/18 16:54 98.6 F 67 16 145/81 98 Intake and Output 08/15/18 08/15/18 08/15/18 07:59 15:59 23:59 Intake Total 1000 / 1000 340 / 340 Balance 1000 / 1000 340 / 340 Intake: IV Fluids 1000 / 1000 100 / 100 Lactated Ringers 1,000 ML @ 125 1000 / 1000 mls/hr IVC .Q8H [facility] Rx#: [id number] Zosyn 3.375 GM In 0.9 % Sodium 100 / 100 Chloride (Mini-Bag +) 100 ML @ 25 mls/hr IVPB Q8H [facility] Rx#: [id number] Oral 240 / 240 Other: Meal Lunch Percent of Meal Consumed 30% # Voids 1 1 Weight 76.6 kg Patient Weight 08/15/18 23:59 Weight 76.6 kg - Labs CBC & BMP: 08/15/18 04:51 08/15/18 04:51 Labs: Abnormal lab results WBC 12.7 K/mcL (4.3-11.1) H 08/15/18 04:51 RBC 3.37 M/mcL (3.82-4.97) L 08/15/18 04:51 Hgb 9.4 g/dL (11.5-15.4) L 08/15/18 04:51 Hct 28.6 % (35.3-44.9) L 08/15/18 04:51 MCH 27.9 pg (28.0-33.3) L 08/15/18 04:51 ESR 34 mm/hr (0-15) H 08/14/18 17:53 Chloride 109 mEq/L (98-107) H 08/15/18 04:51 C-Reactive Protein 13 mg/L (Less than 10) H 08/14/18 17:53 Consult Discharge Plan - Plan Referrals: Nolberto Temple DO [Primary Care Provider] - 08/16/18 10:45 am ()
[2018-08-15] MEDS ORDERED: Magic Mouthwash 10 ML UD Cup PO PRN (17:23)
[2018-08-15] MEDS ORDERED: Cefepime HCl 2,000 MG in 0.9 % Sodium Chloride Mini Bag 100 ML IVPB ONE (18:59)
[2018-08-15] MEDS: predniSONE 5 MG TABLET PO SCH (20:58)
[2018-08-15] MEDS: BOSUTINIB PO SCH (20:59)
[2018-08-16 05:26] LABS: Basophils % 0.3 %; Eosinophils # 0.3 K/mcL (0.0-0.6); Eosinophils % 3.8 %; Hemoglobin 9.7 g/dL (11.5-15.4); Immature Granulocytes % 0.2 % (0-4); Lymphocytes # 1.6 K/mcL (0.6-4.6); Lymphocytes % 18.1 %; Mean Corpuscular HGB Conc 32.3 g/dL (31.6-35.5); Mean Corpuscular Hemoglobin 27.8 pg (28.0-33.3); Mean Platelet Volume 9.9 fL (9.4-12.4); Monocytes # 0.6 K/mcL (0.0-1.3); Monocytes % 7.3 %; Neutrophils # 6.2 K/mcL (1.6-8.9); Platelet Count 236 K/mcL (140-400); Red Blood Count 3.49 M/mcL (3.82-4.97); Red Cell Distribution Width 14.5 % (11.5-14.5); Segmented Neutrophils % 70.3 %
[2018-08-16 05:45] LABS: BUN/Creatinine Ratio 15 (6-26); Blood Urea Nitrogen 14 mg/dL (8-23); Calcium 8.8 mg/dL (8.6-10.3); Carbon Dioxide 23 mEq/L (23-29); Chloride 110 mEq/L (98-107); Glucose 125 mg/dL (70-105); Osmolality,Calculated 292 (280-300); Potassium 4.8 mEq/L (3.5-5.1); Sodium 140 mEq/L (136-145); eGFR For Non-African Americans 60 (> 60)
[2018-08-16] MEDS: *HR* Heparin 5,000 UNIT/ML VIAL SQ SCH ×2 (06:07→13:00)
[2018-08-16] MEDS: Piperacillin/Tazobactam 3.375 GM in 0.9 % Sodium Chloride Mini Bag 100 ML IVPB SCH ×2 (06:08→12:58)
--- NOTE | 2018-08-16 08:01 | Orthopedics Progress Note ---
Date of Encounter: 08/16/18 Time of Encounter: 07:59 - Assessment and Plan (1) Right arm cellulitis Current Visit: Yes Status: Acute Subjective Interval history: S: Patient resting comfortably in bed Pain well-controlled. No new complaints or feelings of illness O: Afebrile on the vital signs are stable No change in the right upper extremity compared to this morning. Small patch of redness unchanged. No fluctuance or induration. Tenderness over the well-healed deltopectoral incision Neurovascularly intact. A: Mild cellulitis to the right arm Possible underlying septic nonunion P: PICC Line today CT-guided aspiration today After the PICC line is placed in the CT guided aspiration is performed she can b e discharged in anticipation of her appointment tomorrow morning with Dr. Frias. Objective Vital signs: Vital Signs Temp Pulse Resp BP Pulse Ox 08/16/18 07:25 98.5 F 59 15 146/79 98 08/16/18 03:43 98.4 F 61 16 129/72 97 08/15/18 23:34 98 F 59 16 108/66 96 08/15/18 18:54 97.7 F 59 16 116/68 98 08/15/18 15:12 98.2 F 63 15 107/67 98 08/15/18 11:05 98.6 F 64 15 148/80 90 Intake and Output 08/15/18 08/15/18 08/16/18 15:59 23:59 07:59 Intake Total 340 / 340 350 / 350 100 / 100 Output Total 0 / 0 Balance 340 / 340 350 / 350 100 / 100 Intake: IV Fluids 100 / 100 350 / 350 100 / 100 Zosyn 3.375 GM In 0.9 % Sodium 100 / 100 100 / 100 100 / 100 Chloride (Mini-Bag +) 100 ML @ 25 mls/hr IVPB Q8H [facility] Rx#: [id number] Vancocin 1,250 MG In 0.9 % 250 / 250 Sodium Chloride 250 ML @ 167 mls/hr IVPB Q24H [facility] Rx#: [id number] Oral 240 / 240 Output: Urine 0 / 0 Other: Meal Lunch Percent of Meal Consumed 30% # Voids 1 Weight 77.4 kg Patient Weight 08/16/18 23:59 Weight 77.4 kg - Labs CBC & BMP: 08/16/18 04:58 08/16/18 04:58 Labs: Abnormal lab results RBC 3.49 M/mcL (3.82-4.97) L 08/16/18 04:58 Hgb 9.7 g/dL (11.5-15.4) L 08/16/18 04:58 Hct 30.0 % (35.3-44.9) L 08/16/18 04:58 MCH 27.8 pg (28.0-33.3) L 08/16/18 04:58 ESR 34 mm/hr (0-15) H 08/14/18 17:53 Chloride 110 mEq/L (98-107) H 08/16/18 04:58 Glucose 125 mg/dL (70-105) H 08/16/18 04:58 C-Reactive Protein 13 mg/L (Less than 10) H 08/14/18 17:53 Consult Discharge Plan - Plan Referrals: Nolberto Temple DO [Primary Care Provider] - 08/16/18 10:45 am ()
[2018-08-16] MEDS ORDERED: Folic Acid 1 MG TABLET PO SCH (09:00)
[2018-08-16] MEDS ORDERED: Cyanocobalamin (B-12) 1,000 MCG TABLET PO SCH (09:00)
[2018-08-16] MEDS: Folic Acid 1 MG TABLET PO SCH (12:57)
[2018-08-16] MEDS: Vancomycin Oral Soln 125 MG/2.5 ML UDC PO SCH (12:57)
[2018-08-16] MEDS: Gabapentin 100 MG CAPSULE PO SCH ×2 (12:57→16:21)
[2018-08-16] MEDS: *HR* OxyCODONE/APAP 5/325 TABLET PO PRN (12:57)
[2018-08-16] MEDS: predniSONE 5 MG TABLET PO SCH (12:57)
[2018-08-16] MEDS: Lactobacillus 1 EACH CAP.SPRINK PO SCH (12:57)
[2018-08-16] MEDS ORDERED: Lidocaine 1% 20 ML MDV INFILT ONE (13:13)
--- NOTE | 2018-08-16 13:18 | IR Consult Note ---
Date of Encounter: 08/16/18 Time of Encounter: 13:00 Assessment and Plan (1) Right arm pain Current Visit: Yes Status: Acute Consult date: 08/16/18 Physicians: Barbara Martinez MD Consult Comment: Thank you for the consult. Call [facility] with questions or concerns. After reviewing the CT scan from 08/14/18 and asking the opinion of an [facility] radiologist, there is no target for biopsy or aspiration. The CT scan reports lucencies which are likely related to previous instrumentation. There is no target for biopsy or aspiration. Past Med Surg Social Fam HX - Past Medical History Medical history: asthma, cancer, COPD, hyperlipidemia, hypertension, other Additional medical history: CML Ca, breast CA Psychiatric history: anxiety, depression - Past Surgical History Surgical History: cholecystectomy, other Additional surgical history: Michael repair - Social History Smoking Status: Never smoker Smokeless Tobacco Status: No Alcohol use: none Drug use: none - Family History Mother Age at : 54 Cause of : Cancer Hx Family Cardiac Disorders: Yes (CHF, HTN) Hx Family Respiratory Disorders: No Hx Family Cancer: Yes (Breast) Hx Family GI Disorders: No Hx Family Genitourinary Disorders: No Hx Family Endocrine Disorder: Yes (DM) Hx Family Musculoskeletal Disorders: No Hx Family Neuromuscular Disorders: No Hx Family Neurologic Disorders: No Hx Family HEENT Disorders: No Hx Family Autoimmune Disorders: No Hx Family Reproductive Disorders: No Hx Family Psychosocial Disorders: No Hx Family Medical Disorders: No Father Hx Family Cardiac Disorders: Yes (TN, CVA, HTN) Hx Family Respiratory Disorders: Yes (COPD) Hx Family Cancer: Yes (Lung) Hx Family GI Disorders: No Hx Family Genitourinary Disorders: No Hx Family Endocrine Disorder: No Hx Family Musculoskeletal Disorders: No Hx Family Neuromuscular Disorders: No Hx Family Neurologic Disorders: No Hx Family HEENT Disorders: No Hx Family Autoimmune Disorders: No Hx Family Reproductive Disorders: No Hx Family Psychosocial Disorders: No Hx Family Medical Disorders: No Medications and Allergies ALPRAZolam [Xanax 1 MG Tablet] 1 mg PO HS PRN 08/14/18 [History] Bosutinib [Bosulif] 200 mg PO DAILY 08/14/18 [History] Folic Acid 1 mg PO DAILY 08/14/18 [History] Gabapentin [Neurontin] 100 mg PO TID 08/14/18 [History] Levothyroxine [Synthroid] 150 mcg PO DAILY 08/14/18 [History] Sertraline [Zoloft] 50 mg PO DAILY 08/14/18 [History] Atorvastatin [Lipitor] 10 mg PO DAILY 08/15/18 [History] Cholecalciferol (Vitamin D3) [Vitamin D] 1,000 unit PO DAILY 08/15/18 [History] Cyanocobalamin (Vitamin B-12) [Vitamin B12] 1,000 mcg PO DAILY 08/15/18 [History] Losartan Potassium 25 mg PO DAILY 08/15/18 [History] Magic Mouthwash [Magic Mouthwash BLM] 5 ml PO Q6H PRN 08/15/18 [History] Oxycodone HCl 5 mg PO Q6H PRN 08/15/18 [History] Polyethylene Glycol 3350 [Purelax] 17 gm PO DAILY PRN 08/15/18 [History] Prochlorperazine Maleate 10 mg PO DAILY PRN 08/15/18 [History] predniSONE [PredniSONE] 5 mg PO BID 08/15/18 [History] Allergy/AdvReac Type Severity Reaction Status Date / Time latex AdvReac Blister Verified 08/15/18 10:18 ondansetron AdvReac "SEVERE Verified 08/15/18 10:18 HEADACHE" Sulfa (Sulfonamide AdvReac Rash, HIVES Verified 08/15/18 10:18 Antibiotics) Exam Vital Signs, Last 4 Hours Temp Pulse Resp BP Pulse Ox 08/16/18 10:59 98.5 F 54 16 141/61 100 Results Reviewed 08/16/18 04:58 08/16/18 04:58 Lab Results 08/16/18 08/16/18 08/15/18 04:58 04:58 04:51 WBC 8.8 RBC 3.49 L Hgb 9.7 L Hct 30.0 L MCV 86.0 MCH 27.8 L MCHC 32.3 RDW 14.5 Plt Count 236 MPV 9.9 Neutrophils # 6.2 Lymphocytes # 1.6 Monocytes # 0.6 Eosinophils # 0.3 Basophils # 0.0 PT INR APTT Sodium 140 141 Potassium 4.8 3.8 Chloride 110 H 109 H Carbon Dioxide 23 25 BUN 14 18 Creatinine 0.93 0.83 Est GFR ( Amer) > 60 > 60 Est GFR (Non-Af Amer) 60 > 60 BUN/Creatinine Ratio 15 22 Glucose 125 H 88 Calcium 8.8 8.7 08/15/18 08/14/18 08/14/18 04:51 17:53 17:53 WBC 12.7 H RBC 3.37 L Hgb 9.4 L Hct 28.6 L MCV 84.9 MCH 27.9 L MCHC 32.9 RDW 14.3 Plt Count 249 MPV 10.2 Neutrophils # 8.3 Lymphocytes # 3.0 Monocytes # 1.0 Eosinophils # 0.4 Basophils # 0.0 PT 11.1 INR 1.0 APTT 34.1 Sodium 139 Potassium 4.5 Chloride 106 Carbon Dioxide 26 BUN 22 Creatinine 0.85 Est GFR ( Amer) > 60 Est GFR (Non-Af Amer) > 60 BUN/Creatinine Ratio 26 Glucose 107 H Calcium 9.2 08/14/18 17:53 WBC 13.7 H RBC 3.68 L Hgb 10.2 L Hct 31.5 L MCV 85.6 MCH 27.7 L MCHC 32.4 RDW 14.3 Plt Count 250 MPV 10.3 Neutrophils # 10.6 H Lymphocytes # 2.0 Monocytes # 0.9 Eosinophils # 0.1 Basophils # 0.0 PT INR APTT Sodium Potassium Chloride Carbon Dioxide BUN Creatinine Est GFR ( Amer) Est GFR (Non-Af Amer) BUN/Creatinine Ratio Glucose Calcium Consult Discharge Plan - Plan Referrals: Nolberto Temple DO [Primary Care Provider] - 08/23/18 12:00 pm ()
--- NOTE | 2018-08-16 16:25 | Discharge Summary ---
- NOTES TO OUTPATIENT PROVIDER Notes to Outpatient Provider: Patient will follow up with Dr. Frias of [facility] on Monday for management of cellulitis of right arm. PICC line has been placed and home health has been established per nursing home social worker Orders not resulted at time of discharge: Pending orders 08/14/18 19:33 Culture,Blood [BC] Stat 08/15/18 16:55 Culture,Body Fluid [RM] Routine 08/17/18 20:00 Vancomycin,Trough Timed Date of Encounter: 08/16/18 Time of Encounter: 16:22 - Discharge Diagnosis (1) Right arm cellulitis Priority: Primary Status: Acute (2) CML (chronic myelocytic leukemia) Priority: Secondary Status: Acute (3) Sarcoid Priority: Secondary Status: Acute (4) History of Clostridium difficile colitis Priority: Secondary Status: Acute Hospital course: Ms. Monroy is a 68 year old female past medical history of CML on bosuitinib and sarcoidosis on prednisone history of TKA many years ago and suffered a post surgical hardware infection. Also suffer from C. difficile colitis 2 years ago. She sustained a fracture of the proximal aspect of her right humerus on January 2018 but did not undergo surgical intervention until May 2018 with a lateral plate and screw fixation. She presented to the [facility] on advice of her orthopedic surgeon Dr. Frias after she complained of noticing erythremia of her right arm as well as pain and limitations of range of motion. She denies any fevers or chills ultrasound was completed which did not reveal any DVT. X-ray confirmed lateral soft tissue swelling as well as patchy lucencies around the hardware concerning for infectious process. The suspicious lucencies were also noted on CT scan prompting concern for infectious process lab work did reveal leukocytosis 13.7 ESR 34 and CRP. She was initiated on broad-spectrum antibiotics and was evaluated by orthopedics. Dr. Abraham did discuss case with patient's orthopedic surgeon Dr. Frias originally requested CT- guided aspiration and PICC line placed for outpatient IV antibiotics and home health. M did have patient follow-up with Dr. Frias in the a.m. for antibiotic management. Was notified per nursing staff IR unable to completely aspiration due to no target for biopsy or aspiration. These findings were discussed with Dr. Abraham-who again spoke with Dr. Frias recommending patient to be discharged after receiving her scheduled doses of antibiotics and will be following up with Dr. Frias in the a.m. for further IV antibiotic management as outpatient. Home health services have been established per nursing home social worker. Patient will be discharged home per orthopedics request and follow-up with Dr. Frias in the a.m. No prescriptions will be provided at discharge since Dr. Frias will be managing antibiotic therapy-per discussion with Dr. Abraham. Currently patient is hemodynamically stable and appears to be in no distress erythremia and edema to right arm has improved. I discussed discharge planning as well as follow-up with the patient who verbalized understanding patient will be discharged home after receiving final dose of vancomycin and Zosyn this evening. Prior to discharge patient did state she had a loose stool we will provide patient a sample container advised if she continues to have loose stool to collect sample and presented to her PCP - Time Spent with Patient Total time spent providing and/or coordinating discharge services: - Discharge Medications Home Medications: ALPRAZolam [Xanax 1 MG Tablet] 1 mg PO HS PRN 08/14/18 [History] Bosutinib [Bosulif] 200 mg PO DAILY 08/14/18 [History] Folic Acid 1 mg PO DAILY 08/14/18 [History] Gabapentin [Neurontin] 100 mg PO TID 08/14/18 [History] Levothyroxine [Synthroid] 150 mcg PO DAILY 08/14/18 [History] Sertraline [Zoloft] 50 mg PO DAILY 08/14/18 [History] Atorvastatin [Lipitor] 10 mg PO DAILY 08/15/18 [History] Cholecalciferol (Vitamin D3) [Vitamin D3] 1,000 unit PO DAILY 08/15/18 [History] Cyanocobalamin (Vitamin B-12) [Vitamin B12] 1,000 mcg PO DAILY 08/15/18 [History] Losartan Potassium 25 mg PO DAILY 08/15/18 [History] Magic Mouthwash [Magic Mouthwash BLM] 5 ml PO Q6H PRN 08/15/18 [History] Oxycodone HCl 5 mg PO Q6H PRN 08/15/18 [History] Polyethylene Glycol 3350 [Purelax] 17 gm PO DAILY PRN 08/15/18 [History] Prochlorperazine Maleate 10 mg PO DAILY PRN 08/15/18 [History] predniSONE [PredniSONE] 5 mg PO BID 08/15/18 [History] Allergies/Adverse Reactions: Allergy/AdvReac Type Severity Reaction Status Date / Time latex AdvReac Blister Verified 08/15/18 10:18 ondansetron AdvReac "SEVERE Verified 08/15/18 10:18 HEADACHE" Sulfa (Sulfonamide AdvReac Rash, HIVES Verified 08/15/18 10:18 Antibiotics) Date of admission: 08/15/18 17:20 Primary care physician: Nolberto Temple DO Consults: 08/14/18 21:38 Consult to Orthopedic Surgery [CONS] Routine Consulting Provider: Orthoped[facility] Reason for Consult: 68 y/o F with radiologic concerns for hardware infection Call Completed: Yes 08/16/18 07:43 Consult to Interventional Radiology [CONS] Routine Consulting Provider: Radiology Interventional Cols Reason for Consult: ct guided biopsy. see order Call Completed: Yes 08/16/18 09:32 Consult to Residential Driver [CONS] Routine Reason for SW Consult: per Dr. Hoang note patient may need home IV antibiotics. 08/16/18 11:48 Consult to PICC team [Consult to Invasive Line Access Team] [CONS] Routine Reason for Consult: home IV ATB Line Type: PICC PICC line indications: jail Med/Antibiotic 08/16/18 13:13 Consult to Invasive Line Access Team [CONS] Routine Reason for Consult: Picc Line Insertion Line Type: PICC Discharging clinician: Jina Flood Anticipated date of discharge: 08/16/18 - Constitutional Vitals: Temp Pulse Resp BP Pulse Ox 98.5 F 54 16 141/61 100 08/16/18 10:59 08/16/18 10:59 08/16/18 10:59 08/16/18 10:59 08/16/18 10:59 Exam: Vitals: Reviewed General: Well-developed white female lying comfortably in bed in no acute distress. Skin: Warm and supple. HEENT: Moist mucous membranes. No conjunctivae pallor. Neck: No lymphadenopathy. No JVD. No carotid bruits. No palpable thyroid. Chest: Normal thoracic expansion. Normal breath sounds. Clear to auscultation. Heart: Normal S1 & S2; rhythmic. No rubs or murmurs. Abdomen: Non-distended, soft and non-tender to palpation. No peritoneal reaction. Extremities: Right shoulder surgical incision site without erythema or swelling but limited joint motion due to pain is noted; slight erythremia and edema to right arm Neurological: Awake, alert and oriented to person, place and time. No focal deficits. Psych: Affect appropriate. - Patient Status Disposition: Home Health Service Condition: Good Functional capacity at discharge: independent ambulation Overall status at discharge: patient is back to baseline - Discharge Instructions Instructions: Cellulitis (DC) Follow Up With: Nolberto Temple DO [Primary Care Provider] - 08/23/18 12:00 pm () Additional Instructions: [facility] has been set up for prison for PICC line care and future IV Antibiotics that will be ordered by Dr. Frias. The phone number for [facility] is #[phone] and the fax number is #[phone]. - Diet and Activity Activity: increase activity as tolerated Diet: advance to your usual diet
[2018-08-16 17:13] VITALS: BP 120/66
--- NOTE | 2018-08-16 19:16 | Physician Discharge Referral ---
Home Health/Hosp Referral Info Transfer to: Home Health Attending Provider: juany lanza Provider in Charge Post Discharge: PCP - Diagnosis (1) Right arm cellulitis Priority: Primary Status: Acute (2) CML (chronic myelocytic leukemia) Priority: Secondary Status: Acute (3) Sarcoid Priority: Secondary Status: Acute (4) History of Clostridium difficile colitis Priority: Secondary Status: Acute - Respiratory Orders Smoking Cessation: Smoking cessation has been advised. For more information, call the [place] Tobacco Quit Line at 8-511-KSZJ-NOW. - Diet/Nutrition Diet/Nutrition Orders: Regular - Activity Activity Orders: Up ad indra - Services Needed Following services are medically necessary services: Nursing - Transfer Medications Home Medications: ALPRAZolam [Xanax 1 MG Tablet] 1 mg PO HS PRN 08/14/18 [History] Bosutinib [Bosulif] 200 mg PO DAILY 08/14/18 [History] Folic Acid 1 mg PO DAILY 08/14/18 [History] Gabapentin [Neurontin] 100 mg PO TID 08/14/18 [History] Levothyroxine [Synthroid] 150 mcg PO DAILY 08/14/18 [History] Sertraline [Zoloft] 50 mg PO DAILY 08/14/18 [History] Atorvastatin [Lipitor] 10 mg PO DAILY 08/15/18 [History] Cholecalciferol (Vitamin D3) [Vitamin D3] 1,000 unit PO DAILY 08/15/18 [History] Cyanocobalamin (Vitamin B-12) [Vitamin B12] 1,000 mcg PO DAILY 08/15/18 [History] Losartan Potassium 25 mg PO DAILY 08/15/18 [History] Magic Mouthwash [Magic Mouthwash BLM] 5 ml PO Q6H PRN 08/15/18 [History] Oxycodone HCl 5 mg PO Q6H PRN 08/15/18 [History] Polyethylene Glycol 3350 [Purelax] 17 gm PO DAILY PRN 08/15/18 [History] Prochlorperazine Maleate 10 mg PO DAILY PRN 08/15/18 [History] predniSONE [PredniSONE] 5 mg PO BID 08/15/18 [History] Allergies/Adverse Reactions: Allergy/AdvReac Type Severity Reaction Status Date / Time latex AdvReac Blister Verified 08/15/18 10:18 ondansetron AdvReac "SEVERE Verified 08/15/18 10:18 HEADACHE" Sulfa (Sulfonamide AdvReac Rash, HIVES Verified 08/15/18 10:18 Antibiotics) Certification: Further, I certify that my clinical findings support that this patient is homebound (i.e. absences from home require considerable and taxing effort and are for medical reasons or scientology services or infrequently or short duration when for other reasons) because: Homebound Reason: Post-surgery restriction and or conditions limit ability to leave home Attestation: My signature below is to certify that this patient is under my care and that I, or nurse practitioner, or a physician's evaluation assistant working with me, has a [id number] encounter with this patient.
== END 2018-08-16 17:57 | disposition home health service (06) | DRG 603 ==
LOC: EMEROOARM 16:44 → 3BNU 16:44
PROVIDERS: ADMIT Internal Medicine; ATTEND Internal Medicine

== ENCOUNTER 2020-10-17 14:08 | Inpatient (IN) ==
[2020-10-17 14:56] LABS: Hematocrit 37.2 % (35.3-44.9); Hemoglobin 12.5 g/dL (11.5-15.4); Mean Corpuscular HGB Conc 33.6 g/dL (31.6-35.5); Mean Corpuscular Hemoglobin 29.8 pg (28.0-33.3); Mean Corpuscular Volume 88.6 fL (83.0-100.0); Mean Platelet Volume 10.2 fL (9.4-12.4); Platelet Count 203 K/mcL (140-400); Red Cell Distribution Width 13.2 % (11.5-14.5); White Blood Count 21.7 K/mcL (4.3-11.1)
[2020-10-17] MEDS ORDERED: Vancomycin (wt based) 1,000 MG VIAL IV ONE (15:11)
[2020-10-17] MEDS ORDERED: Piperacillin/Tazobactam 3.375 GM in Water for inj. (sterile) 20 ML IVP ONE (15:11)
[2020-10-17] MEDS ORDERED: Vancomycin 1,250 MG/262.5 ML IV.SOLN IVPB ONE (15:12)
[2020-10-17 15:15] LABS: Calcium 8.4 mg/dL (8.6-10.3); Potassium 4.1 mEq/L (3.5-5.1)
[2020-10-17 15:16] LABS: Troponin I 0.03 ng/mL (< 0.04)
[2020-10-17 15:24] LABS: Lymphocytes # 2.2 K/mcL (0.6-4.6); Monocytes # 0.4 K/mcL (0.0-1.3); Neutrophils # 18.7 K/mcL (1.6-8.9)
[2020-10-17 15:25] LABS: Platelet Estimate Normal (Normal); Reactive Lymphocytes Present (Not Present)
[2020-10-17 15:59] LABS: INR 1.1; Prothrombin Time 12.4 Seconds (9.4-12.1)
[2020-10-17 16:02] LABS: Activated Partial Thrombo Time 24.7 Seconds (26.0-36.0)
[2020-10-17] MEDS ORDERED: Isovue-370 500 ML BOTTLE IVP ONE (16:07)
[2020-10-17] MEDS ORDERED: Naloxone 0.4 MG/ML INJ IVP PRN (17:41)
[2020-10-17] MEDS ORDERED: Ondansetron 4 MG/2 ML VIAL IVP PRN (17:41)
[2020-10-17] MEDS ORDERED: *HR* HYDROcodone/Acet 5/325 mg TABLET PO PRN (17:41)
[2020-10-17] MEDS ORDERED: *HR* OxyCODONE Immed Rel 5 MG TABLET PO PRN (17:48)
[2020-10-17 19:31] LABS: Adenovirus Not Detected (Not Detect); Coronavirus 229E Not Detected (Not Detect); Coronavirus HKU1 Not Detected (Not Detect); Coronavirus NL63 Not Detected (Not Detect); Coronavirus OC43 Not Detected (Not Detect)
[2020-10-17 19:33] LABS: Bordetella Pertussis Not Detected (Not Detect); Chlamydophila pneumoniae Not Detected (Not Detect); Human Metapneumovirus Not Detected (Not Detect); Human Rhinovirus/Enterovirus Not Detected (Not Detect); Influenza A Subtype 2009 H1 Not Detected (Not Detect); Influenza B Not Detected (Not Detect); Mycoplasma pneumoniae Not Detected (Not Detect); Parainfluenza Virus 1 Not Detected (Not Detect); Parainfluenza Virus 2 Not Detected (Not Detect); Parainfluenza Virus 3 Not Detected (Not Detect); Parainfluenza Virus 4 Not Detected (Not Detect); Respiratory Syncytial Virus Not Detected (Not Detect); SARS-CoV-2 DETECTED (Not Detect)
[2020-10-17] MEDS: Acetaminophen 325 MG TABLET PO PRN (19:37)
[2020-10-17] MEDS: Benzonatate 100 MG CAPSULE PO PRN (19:37)
[2020-10-17] MEDS: Piperacillin/Tazobactam 3.375 GM in 0.9 % Sodium Chloride Mini Bag 100 ML IVPB SCH (23:03)
[2020-10-17] MEDS: *HR* Heparin 5,000 UNIT/ML VIAL SQ SCH (23:04)
[2020-10-18 02:24] LABS: Bilirubin,Urine Negative (Negative); Blood,Urine Negative (Negative); Clarity,Urine Clear (Clear); Color,Urine Colorless (Yellow); Glucose,Urine (UA) Normal (Normal); Ketones,Urine Negative (Negative); Leukocyte Esterase,Urine Trace (Negative); Nitrite,Urine Negative (Negative); Protein,Urine 30 mg/dL (Neg-Trace); RBC,Urine 0-3 per hpf (0-3); Specific Gravity,Urine > 1.030 (1.010-1.025); Squamous Epithelial Cell,Urine Few per hpf (None-Few); Urobilinogen,Urine Normal (Normal)
[2020-10-18] MEDS: *HR* HYDROcodone/Acet 5/325 mg TABLET PO PRN ×3 (03:49→19:53)
[2020-10-18] MEDS: Ipratropium 1 PUFF INHALER IH PRN (03:58)
[2020-10-18 05:38] LABS: Basophils # 0.1 K/mcL (0.0-0.2); Basophils % 0.5 %; Hematocrit 35.5 % (35.3-44.9); Hemoglobin 11.7 g/dL (11.5-15.4); Immature Granulocytes % 2.4 % (0-4); Lymphocytes % 9.4 %; Mean Corpuscular Hemoglobin 29.1 pg (28.0-33.3); Mean Corpuscular Volume 88.3 fL (83.0-100.0); Mean Platelet Volume 9.6 fL (9.4-12.4); Monocytes # 0.5 K/mcL (0.0-1.3); Platelet Count 169 K/mcL (140-400); Red Blood Count 4.02 M/mcL (3.82-4.97); Red Cell Distribution Width 13.2 % (11.5-14.5); Segmented Neutrophils % 84.7 %; White Blood Count 16.5 K/mcL (4.3-11.1)
[2020-10-18 05:42] LABS: Lymphocytes # 1.6 K/mcL (0.6-4.6)
[2020-10-18 05:59] LABS: BUN/Creatinine Ratio 43 (6-26); Blood Urea Nitrogen 46 mg/dL (8-23); Calcium 8.1 mg/dL (8.6-10.3); Carbon Dioxide 26 mEq/L (23-29); Chloride 99 mEq/L (98-107); Glucose 138 mg/dL (70-105); Magnesium 2.5 mg/dL (1.6-2.6); Osmolality,Calculated 296 (280-300); Phosphorous 4.2 mg/dL (2.7-4.5); Potassium 4.1 mEq/L (3.5-5.1); Sodium 136 mEq/L (136-145); eGFR For African Americans > 60 (> 60); eGFR For Non-African Americans 50 (> 60)
[2020-10-18 06:00] LABS: Platelet Estimate Normal (Normal); Reactive Lymphocytes Present (Not Present)
[2020-10-18] MEDS: Piperacillin/Tazobactam 3.375 GM in 0.9 % Sodium Chloride Mini Bag 100 ML IVPB SCH ×2 (09:16→16:35)
[2020-10-18] MEDS: *HR* Heparin 5,000 UNIT/ML VIAL SQ SCH ×2 (09:16→16:35)
[2020-10-18] MEDS: Cholecalciferol (D-3) 1,000 UNIT (25MCG) TABLET PO SCH (09:17)
[2020-10-19] MEDS: Piperacillin/Tazobactam 3.375 GM in 0.9 % Sodium Chloride Mini Bag 100 ML IVPB SCH ×3 (01:03→16:15)
[2020-10-19] MEDS: *HR* Heparin 5,000 UNIT/ML VIAL SQ SCH ×3 (01:04→16:14)
[2020-10-19 05:53] LABS: Basophils % 0.3 %; Hematocrit 38.4 % (35.3-44.9); Hemoglobin 12.4 g/dL (11.5-15.4); Immature Granulocytes % 2.1 % (0-4); Lymphocytes # 0.8 K/mcL (0.6-4.6); Lymphocytes % 4.9 %; Mean Corpuscular HGB Conc 32.3 g/dL (31.6-35.5); Mean Corpuscular Hemoglobin 29.5 pg (28.0-33.3); Mean Corpuscular Volume 91.4 fL (83.0-100.0); Mean Platelet Volume 10.8 fL (9.4-12.4); Monocytes # 0.6 K/mcL (0.0-1.3); Monocytes % 4.1 %; Neutrophils # 13.5 K/mcL (1.6-8.9); Platelet Count 101 K/mcL (140-400); Red Cell Distribution Width 13.2 % (11.5-14.5); Segmented Neutrophils % 88.6 %; White Blood Count 15.2 K/mcL (4.3-11.1)
[2020-10-19 06:14] LABS: Albumin 3.3 g/dL (3.5-5.7); Bilirubin,Total 0.5 mg/dL (0.3-1.0); Globulin 3.4 g/dL (2.4-3.5); Total Protein 6.7 g/dL (6.4-8.9)
[2020-10-19] MEDS: Cholecalciferol (D-3) 1,000 UNIT (25MCG) TABLET PO SCH (10:01)
[2020-10-19] MEDS: *HR* HYDROcodone/Acet 5/325 mg TABLET PO PRN (10:52)
[2020-10-19] MEDS: Ipratropium 1 PUFF INHALER IH PRN (21:48)
[2020-10-20] MEDS: Piperacillin/Tazobactam 3.375 GM in 0.9 % Sodium Chloride Mini Bag 100 ML IVPB SCH ×3 (00:05→15:27)
[2020-10-20] MEDS: *HR* HYDROcodone/Acet 5/325 mg TABLET PO PRN ×2 (00:08→09:24)
[2020-10-20] MEDS: Benzonatate 100 MG CAPSULE PO PRN (00:08)
[2020-10-20] MEDS: *HR* Enoxaparin 40 MG/0.4 ML SYRINGE SQ SCH (04:47)
[2020-10-20 06:41] LABS: Basophils # 0.1 K/mcL (0.0-0.2); Basophils % 0.3 %; Eosinophils % 0.1 %; Hematocrit 36.1 % (35.3-44.9); Hemoglobin 11.8 g/dL (11.5-15.4); Immature Granulocytes % 2.2 % (0-4); Lymphocytes # 0.6 K/mcL (0.6-4.6); Lymphocytes % 4.5 %; Mean Corpuscular HGB Conc 32.7 g/dL (31.6-35.5); Mean Corpuscular Hemoglobin 29.9 pg (28.0-33.3); Mean Corpuscular Volume 91.4 fL (83.0-100.0); Mean Platelet Volume 10.1 fL (9.4-12.4); Monocytes # 0.6 K/mcL (0.0-1.3); Monocytes % 4.3 %; Neutrophils # 12.7 K/mcL (1.6-8.9); Platelet Count 168 K/mcL (140-400); Red Blood Count 3.95 M/mcL (3.82-4.97); Red Cell Distribution Width 13.1 % (11.5-14.5); Segmented Neutrophils % 88.6 %; White Blood Count 14.3 K/mcL (4.3-11.1)
[2020-10-20 07:09] LABS: Calcium 8.5 mg/dL (8.6-10.3); Potassium 4.7 mEq/L (3.5-5.1)
[2020-10-20] MEDS: Cholecalciferol (D-3) 1,000 UNIT (25MCG) TABLET PO SCH (09:24)
[2020-10-20] MEDS: Dexamethasone Sodium Phos/PF 10 MG/ML VIAL IVP SCH (09:24)
[2020-10-20] MEDS ORDERED: *HR* OxyCODONE Immed Rel 5 MG TABLET PO PRN ×2 (10:46→10:49)
[2020-10-20] MEDS: amLODIPine 5 MG TABLET PO SCH (16:23)
[2020-10-20] MEDS: Ipratropium 1 PUFF INHALER IH PRN (20:42)
[2020-10-21] MEDS: Piperacillin/Tazobactam 3.375 GM in 0.9 % Sodium Chloride Mini Bag 100 ML IVPB SCH ×4 (01:06→23:08)
[2020-10-21] MEDS: Ipratropium 1 PUFF INHALER IH PRN ×3 (01:54→19:29)
[2020-10-21] MEDS: Acetaminophen 325 MG TABLET PO PRN (05:00)
[2020-10-21] MEDS: *HR* Enoxaparin 40 MG/0.4 ML SYRINGE SQ SCH (05:00)
[2020-10-21 06:34] LABS: Hematocrit 34.5 % (35.3-44.9); Hemoglobin 11.3 g/dL (11.5-15.4); Mean Corpuscular HGB Conc 32.8 g/dL (31.6-35.5); Mean Corpuscular Hemoglobin 29.1 pg (28.0-33.3); Mean Corpuscular Volume 88.9 fL (83.0-100.0); Mean Platelet Volume 9.8 fL (9.4-12.4); Platelet Count 182 K/mcL (140-400); Red Blood Count 3.88 M/mcL (3.82-4.97); Red Cell Distribution Width 13.4 % (11.5-14.5)
[2020-10-21 06:46] LABS: BUN/Creatinine Ratio 37 (6-26); Blood Urea Nitrogen 35 mg/dL (8-23); Calcium 8.6 mg/dL (8.6-10.3); Carbon Dioxide 26 mEq/L (23-29); Chloride 102 mEq/L (98-107); Glucose 140 mg/dL (70-105); Osmolality,Calculated 290 (280-300); Potassium 4.2 mEq/L (3.5-5.1); Sodium 135 mEq/L (136-145); eGFR For African Americans > 60 (> 60); eGFR For Non-African Americans 59 (> 60)
[2020-10-21] MEDS: amLODIPine 5 MG TABLET PO SCH (08:12)
[2020-10-21] MEDS: Cholecalciferol (D-3) 1,000 UNIT (25MCG) TABLET PO SCH (08:12)
[2020-10-21] MEDS: Dexamethasone Sodium Phos/PF 10 MG/ML VIAL IVP SCH (08:12)
[2020-10-21] MEDS ORDERED: amLODIPine 5 MG TABLET PO ONE (14:21)
[2020-10-21] MEDS ORDERED: Furosemide 20 MG/2 ML VIAL IVP ONE (14:23)
[2020-10-21] MEDS ORDERED: hydrALAZINE 10 MG TABLET PO SCH (18:00)
[2020-10-21] MEDS: hydrALAZINE 10 MG TABLET PO SCH (21:59)
[2020-10-22] MEDS: Ipratropium 1 PUFF INHALER IH PRN ×4 (00:07→19:49)
[2020-10-22 02:39] LABS: Basophils # 0.1 K/mcL (0.0-0.2); Basophils % 0.3 %; Hematocrit 35.8 % (35.3-44.9); Hemoglobin 11.5 g/dL (11.5-15.4); Immature Granulocytes % 2.8 % (0-4); Lymphocytes # 0.6 K/mcL (0.6-4.6); Lymphocytes % 3.1 %; Mean Corpuscular HGB Conc 32.1 g/dL (31.6-35.5); Mean Corpuscular Hemoglobin 29.1 pg (28.0-33.3); Mean Corpuscular Volume 90.6 fL (83.0-100.0); Monocytes # 0.7 K/mcL (0.0-1.3); Monocytes % 3.7 %; Neutrophils # 16.3 K/mcL (1.6-8.9); Platelet Count 183 K/mcL (140-400); Red Blood Count 3.95 M/mcL (3.82-4.97); Red Cell Distribution Width 13.3 % (11.5-14.5); Segmented Neutrophils % 90.1 %
[2020-10-22 03:00] LABS: Alanine Aminotransferase 157 Units/L (7-52); Albumin 3.2 g/dL (3.5-5.7); Alkaline Phosphatase 85 Units/L (34-104); Aspartate Amino Transferase 57 Units/L (13-39); BUN/Creatinine Ratio 38 (6-26); Bilirubin,Total 0.5 mg/dL (0.3-1.0); Blood Urea Nitrogen 36 mg/dL (8-23); Calcium 8.8 mg/dL (8.6-10.3); Carbon Dioxide 26 mEq/L (23-29); Chloride 101 mEq/L (98-107); Globulin 3.3 g/dL (2.4-3.5); Glucose 138 mg/dL (70-105); Osmolality,Calculated 291 (280-300); Potassium 4.2 mEq/L (3.5-5.1); Sodium 135 mEq/L (136-145); Total Protein 6.5 g/dL (6.4-8.9); eGFR For African Americans > 60 (> 60); eGFR For Non-African Americans 57 (> 60)
[2020-10-22] MEDS: *HR* Enoxaparin 40 MG/0.4 ML SYRINGE SQ SCH (05:41)
[2020-10-22] MEDS: Benzonatate 100 MG CAPSULE PO PRN (05:47)
[2020-10-22] MEDS: Piperacillin/Tazobactam 3.375 GM in 0.9 % Sodium Chloride Mini Bag 100 ML IVPB SCH ×2 (07:26→16:54)
[2020-10-22] MEDS: hydrALAZINE 10 MG TABLET PO SCH ×3 (07:26→21:02)
[2020-10-22] MEDS: Dexamethasone Sodium Phos/PF 10 MG/ML VIAL IVP SCH ×2 (07:26→08:36)
[2020-10-22] MEDS: amLODIPine 5 MG TABLET PO SCH (07:27)
[2020-10-22] MEDS: Cholecalciferol (D-3) 1,000 UNIT (25MCG) TABLET PO SCH (07:27)
[2020-10-22] MEDS ORDERED: Furosemide 40 MG/4 ML VIAL IVP ONE (07:55)
[2020-10-23] MEDS: Piperacillin/Tazobactam 3.375 GM in 0.9 % Sodium Chloride Mini Bag 100 ML IVPB SCH ×4 (00:50→23:38)
[2020-10-23] MEDS: Ipratropium 1 PUFF INHALER IH PRN ×4 (03:24→20:38)
[2020-10-23] MEDS: Acetaminophen 325 MG TABLET PO PRN (03:56)
[2020-10-23] MEDS: *HR* Enoxaparin 40 MG/0.4 ML SYRINGE SQ SCH (05:30)
[2020-10-23 06:01] LABS: Basophils % 0.2 %; Hematocrit 33.6 % (35.3-44.9); Hemoglobin 11.1 g/dL (11.5-15.4); Immature Granulocytes % 3.3 % (0-4); Lymphocytes # 0.4 K/mcL (0.6-4.6); Lymphocytes % 2.4 %; Mean Corpuscular Hemoglobin 29.4 pg (28.0-33.3); Mean Corpuscular Volume 89.1 fL (83.0-100.0); Mean Platelet Volume 9.8 fL (9.4-12.4); Monocytes # 0.5 K/mcL (0.0-1.3); Monocytes % 2.7 %; Neutrophils # 17.1 K/mcL (1.6-8.9); Platelet Count 185 K/mcL (140-400); Red Blood Count 3.77 M/mcL (3.82-4.97); Red Cell Distribution Width 13.2 % (11.5-14.5); Segmented Neutrophils % 91.4 %; White Blood Count 18.7 K/mcL (4.3-11.1)
[2020-10-23 06:44] LABS: Alanine Aminotransferase 150 Units/L (7-52); Albumin 3.1 g/dL (3.5-5.7); Alkaline Phosphatase 82 Units/L (34-104); Aspartate Amino Transferase 48 Units/L (13-39); BUN/Creatinine Ratio 43 (6-26); Bilirubin,Total 0.7 mg/dL (0.3-1.0); Blood Urea Nitrogen 44 mg/dL (8-23); Calcium 8.7 mg/dL (8.6-10.3); Carbon Dioxide 25 mEq/L (23-29); Chloride 99 mEq/L (98-107); Globulin 3.2 g/dL (2.4-3.5); Glucose 147 mg/dL (70-105); Osmolality,Calculated 294 (280-300); Potassium 4.1 mEq/L (3.5-5.1); Sodium 135 mEq/L (136-145); Total Protein 6.3 g/dL (6.4-8.9); eGFR For African Americans > 60 (> 60); eGFR For Non-African Americans 53 (> 60)
[2020-10-23] MEDS: Dexamethasone Sodium Phos/PF 10 MG/ML VIAL IVP SCH (07:54)
[2020-10-23] MEDS: Furosemide 40 MG/4 ML VIAL IVP SCH (07:54)
[2020-10-23] MEDS: hydrALAZINE 10 MG TABLET PO SCH ×3 (07:55→21:46)
[2020-10-23] MEDS: amLODIPine 5 MG TABLET PO SCH (07:55)
[2020-10-23] MEDS: Cholecalciferol (D-3) 1,000 UNIT (25MCG) TABLET PO SCH (07:55)
[2020-10-24] MEDS: Ipratropium 1 PUFF INHALER IH PRN ×2 (03:42→11:54)
[2020-10-24 05:12] LABS: Basophils % 0.2 %; Eosinophils % 0.1 %; Hematocrit 32.6 % (35.3-44.9); Hemoglobin 10.8 g/dL (11.5-15.4); Immature Granulocytes % 2.5 % (0-4); Lymphocytes # 0.5 K/mcL (0.6-4.6); Lymphocytes % 2.8 %; Mean Corpuscular HGB Conc 33.1 g/dL (31.6-35.5); Mean Corpuscular Hemoglobin 29.8 pg (28.0-33.3); Mean Corpuscular Volume 90.1 fL (83.0-100.0); Mean Platelet Volume 9.6 fL (9.4-12.4); Monocytes # 0.4 K/mcL (0.0-1.3); Monocytes % 2.1 %; Neutrophils # 17.8 K/mcL (1.6-8.9); Platelet Count 200 K/mcL (140-400); Red Blood Count 3.62 M/mcL (3.82-4.97); Red Cell Distribution Width 13.3 % (11.5-14.5); Segmented Neutrophils % 92.3 %; White Blood Count 19.3 K/mcL (4.3-11.1)
[2020-10-24 05:26] LABS: Alanine Aminotransferase 171 Units/L (7-52); Albumin/Globulin Ratio 0.9 (1.1-2.2); Alkaline Phosphatase 84 Units/L (34-104); Aspartate Amino Transferase 50 Units/L (13-39); BUN/Creatinine Ratio 46 (6-26); Bilirubin,Total 0.5 mg/dL (0.3-1.0); Blood Urea Nitrogen 47 mg/dL (8-23); Calcium 8.7 mg/dL (8.6-10.3); Carbon Dioxide 27 mEq/L (23-29); Chloride 100 mEq/L (98-107); Globulin 3.3 g/dL (2.4-3.5); Glucose 148 mg/dL (70-105); Osmolality,Calculated 295 (280-300); Potassium 3.9 mEq/L (3.5-5.1); Sodium 135 mEq/L (136-145); Total Protein 6.3 g/dL (6.4-8.9); eGFR For African Americans > 60 (> 60); eGFR For Non-African Americans 53 (> 60)
[2020-10-24] MEDS: *HR* Enoxaparin 40 MG/0.4 ML SYRINGE SQ SCH (05:28)
[2020-10-24] MEDS: hydrALAZINE 10 MG TABLET PO SCH ×3 (08:27→20:03)
[2020-10-24] MEDS: amLODIPine 5 MG TABLET PO SCH (08:27)
[2020-10-24] MEDS: Piperacillin/Tazobactam 3.375 GM in 0.9 % Sodium Chloride Mini Bag 100 ML IVPB SCH ×3 (08:27→23:10)
[2020-10-24] MEDS: Cholecalciferol (D-3) 1,000 UNIT (25MCG) TABLET PO SCH (08:27)
[2020-10-24] MEDS: Dexamethasone Sodium Phos/PF 10 MG/ML VIAL IVP SCH (08:28)
[2020-10-24] MEDS: Furosemide 40 MG/4 ML VIAL IVP SCH (08:28)
[2020-10-25] MEDS: Ipratropium 1 PUFF INHALER IH PRN ×3 (00:09→16:45)
[2020-10-25] MEDS: *HR* Enoxaparin 40 MG/0.4 ML SYRINGE SQ SCH (05:29)
[2020-10-25] MEDS: amLODIPine 5 MG TABLET PO SCH (08:28)
[2020-10-25] MEDS: Cholecalciferol (D-3) 1,000 UNIT (25MCG) TABLET PO SCH (08:28)
[2020-10-25] MEDS: hydrALAZINE 10 MG TABLET PO SCH ×3 (08:29→20:12)
[2020-10-25] MEDS: Dexamethasone Sodium Phos/PF 10 MG/ML VIAL IVP SCH (08:29)
[2020-10-25] MEDS: Furosemide 40 MG/4 ML VIAL IVP SCH (08:29)
[2020-10-25 09:55] LABS: Basophils % 0.2 %; Eosinophils % 0.6 %; Immature Granulocytes % 2.5 % (0-4); Mean Platelet Volume 9.8 fL (9.4-12.4); Red Blood Count 3.66 M/mcL (3.82-4.97); Red Cell Distribution Width 13.3 % (11.5-14.5)
[2020-10-25 09:57] LABS: Basophils # 0.1 K/mcL (0.0-0.2); Eosinophils # 0.2 K/mcL (0.0-0.6); Hematocrit 32.5 % (35.3-44.9); Hemoglobin 10.7 g/dL (11.5-15.4); Lymphocytes # 0.7 K/mcL (0.6-4.6); Lymphocytes % 2.7 %; Mean Corpuscular HGB Conc 32.9 g/dL (31.6-35.5); Mean Corpuscular Hemoglobin 29.2 pg (28.0-33.3); Mean Corpuscular Volume 88.8 fL (83.0-100.0); Monocytes # 0.3 K/mcL (0.0-1.3); Monocytes % 1.2 %; Platelet Count 233 K/mcL (140-400); Segmented Neutrophils % 92.8 %; White Blood Count 26.9 K/mcL (4.3-11.1)
[2020-10-25 09:58] LABS: Platelet Estimate Normal (Normal)
[2020-10-25 10:07] LABS: Alanine Aminotransferase 145 Units/L (7-52); Alkaline Phosphatase 93 Units/L (34-104); Aspartate Amino Transferase 45 Units/L (13-39); BUN/Creatinine Ratio 52 (6-26); Bilirubin,Total 0.7 mg/dL (0.3-1.0); Blood Urea Nitrogen 49 mg/dL (8-23); Calcium 8.9 mg/dL (8.6-10.3); Carbon Dioxide 26 mEq/L (23-29); Chloride 97 mEq/L (98-107); Glucose 259 mg/dL (70-105); Osmolality,Calculated 300 (280-300); Potassium 3.8 mEq/L (3.5-5.1); Sodium 134 mEq/L (136-145); Total Protein 6.4 g/dL (6.4-8.9); eGFR For African Americans > 60 (> 60); eGFR For Non-African Americans 59 (> 60)
[2020-10-25 10:08] LABS: Albumin/Globulin Ratio 0.9 (1.1-2.2); Globulin 3.4 g/dL (2.4-3.5)
[2020-10-25] MEDS: ALPRAZolam 0.25 MG TABLET PO PRN ×2 (11:18→22:17)
[2020-10-26] MEDS: Ipratropium 1 PUFF INHALER IH PRN ×3 (03:50→16:01)
[2020-10-26] MEDS: ALPRAZolam 0.25 MG TABLET PO PRN (05:06)
[2020-10-26] MEDS: *HR* Enoxaparin 40 MG/0.4 ML SYRINGE SQ SCH (05:14)
[2020-10-26 07:22] LABS: Basophils % 0.2 %; Eosinophils % 0.1 %; Hematocrit 30.8 % (35.3-44.9); Hemoglobin 10.2 g/dL (11.5-15.4); Immature Granulocytes % 2.2 % (0-4); Lymphocytes # 0.4 K/mcL (0.6-4.6); Lymphocytes % 2.2 %; Mean Corpuscular HGB Conc 33.1 g/dL (31.6-35.5); Mean Corpuscular Hemoglobin 29.7 pg (28.0-33.3); Mean Corpuscular Volume 89.5 fL (83.0-100.0); Mean Platelet Volume 10.8 fL (9.4-12.4); Monocytes # 0.3 K/mcL (0.0-1.3); Monocytes % 1.7 %; Neutrophils # 18.1 K/mcL (1.6-8.9); Platelet Count 164 K/mcL (140-400); Red Blood Count 3.44 M/mcL (3.82-4.97); Red Cell Distribution Width 13.2 % (11.5-14.5); Segmented Neutrophils % 93.6 %; White Blood Count 19.4 K/mcL (4.3-11.1)
[2020-10-26 08:23] LABS: Alanine Aminotransferase 112 Units/L (7-52); Albumin 2.9 g/dL (3.5-5.7); Albumin/Globulin Ratio 0.9 (1.1-2.2); Alkaline Phosphatase 85 Units/L (34-104); Aspartate Amino Transferase 32 Units/L (13-39); BUN/Creatinine Ratio 53 (6-26); Bilirubin,Total 0.4 mg/dL (0.3-1.0); Blood Urea Nitrogen 44 mg/dL (8-23); Calcium 8.9 mg/dL (8.6-10.3); Carbon Dioxide 27 mEq/L (23-29); Chloride 97 mEq/L (98-107); Globulin 3.1 g/dL (2.4-3.5); Glucose 162 mg/dL (70-105); Osmolality,Calculated 291 (280-300); Potassium 4.5 mEq/L (3.5-5.1); Sodium 133 mEq/L (136-145); eGFR For African Americans > 60 (> 60); eGFR For Non-African Americans > 60 (> 60)
[2020-10-26] MEDS: hydrALAZINE 10 MG TABLET PO SCH (08:57)
[2020-10-26] MEDS: Furosemide 40 MG/4 ML VIAL IVP SCH (08:58)
[2020-10-26] MEDS: Dexamethasone Sodium Phos/PF 10 MG/ML VIAL IVP SCH (08:58)
[2020-10-26] MEDS: amLODIPine 5 MG TABLET PO SCH (08:58)
[2020-10-26] MEDS: Cholecalciferol (D-3) 1,000 UNIT (25MCG) TABLET PO SCH (08:58)
[2020-10-26 10:07] LABS: D-Dimer 2469 ng/mLFEU (0-500)
[2020-10-26 10:10] LABS: Fibrinogen 974 mg/dL (169-393)
[2020-10-26] MEDS: Piperacillin/Tazobactam 3.375 GM in 0.9 % Sodium Chloride Mini Bag 100 ML IVPB SCH (10:46)
[2020-10-26] MEDS ORDERED: Isovue-370 500 ML BOTTLE IVP ONE (11:23)
[2020-10-26] MEDS: Acetaminophen 325 MG TABLET PO PRN (23:27)
[2020-10-27] MEDS: *HR* Enoxaparin 40 MG/0.4 ML SYRINGE SQ SCH (05:39)
[2020-10-27 06:20] LABS: Basophils % 0.2 %; Eosinophils % 0.1 %; Hematocrit 31.5 % (35.3-44.9); Hemoglobin 10.1 g/dL (11.5-15.4); Immature Granulocytes % 3.3 % (0-4); Lymphocytes # 0.5 K/mcL (0.6-4.6); Lymphocytes % 2.6 %; Mean Corpuscular HGB Conc 32.1 g/dL (31.6-35.5); Mean Corpuscular Hemoglobin 28.9 pg (28.0-33.3); Mean Platelet Volume 10.2 fL (9.4-12.4); Monocytes # 0.4 K/mcL (0.0-1.3); Monocytes % 1.9 %; Neutrophils # 17.1 K/mcL (1.6-8.9); Platelet Count 237 K/mcL (140-400); Red Cell Distribution Width 13.1 % (11.5-14.5); Segmented Neutrophils % 91.9 %; White Blood Count 18.6 K/mcL (4.3-11.1)
[2020-10-27 06:41] LABS: Alanine Aminotransferase 102 Units/L (7-52); Albumin/Globulin Ratio 0.8 (1.1-2.2); Alkaline Phosphatase 97 Units/L (34-104); Aspartate Amino Transferase 27 Units/L (13-39); BUN/Creatinine Ratio 60 (6-26); Bilirubin,Total 0.4 mg/dL (0.3-1.0); Blood Urea Nitrogen 54 mg/dL (8-23); Calcium 9.1 mg/dL (8.6-10.3); Carbon Dioxide 31 mEq/L (23-29); Chloride 94 mEq/L (98-107); Globulin 3.6 g/dL (2.4-3.5); Glucose 196 mg/dL (70-105); Osmolality,Calculated 294 (280-300); Potassium 4.2 mEq/L (3.5-5.1); Sodium 132 mEq/L (136-145); Total Protein 6.6 g/dL (6.4-8.9); eGFR For African Americans > 60 (> 60); eGFR For Non-African Americans > 60 (> 60)
[2020-10-27] MEDS: Ipratropium 1 PUFF INHALER IH PRN (07:31)
[2020-10-27] MEDS: amLODIPine 5 MG TABLET PO SCH (08:57)
[2020-10-27] MEDS: Dexamethasone Sodium Phos/PF 10 MG/ML VIAL IVP SCH (08:58)
[2020-10-27] MEDS: Cholecalciferol (D-3) 1,000 UNIT (25MCG) TABLET PO SCH (08:58)
[2020-10-27] MEDS: Furosemide 40 MG/4 ML VIAL IVP SCH (08:59)
[2020-10-27] MEDS: ALPRAZolam 0.25 MG TABLET PO PRN (11:12)
[2020-10-27] MEDS: Ipratropium/Albuterol Neb 3 ML IH SCH ×4 (11:22→23:40)
[2020-10-28] MEDS: ALPRAZolam 0.25 MG TABLET PO PRN ×2 (03:14→22:07)
[2020-10-28] MEDS: Ipratropium/Albuterol Neb 3 ML IH SCH ×6 (03:54→23:37)
[2020-10-28] MEDS: *HR* Enoxaparin 40 MG/0.4 ML SYRINGE SQ SCH (05:32)
[2020-10-28 06:35] LABS: Basophils % 0.3 %; Eosinophils % 0.1 %; Hematocrit 30.7 % (35.3-44.9); Hemoglobin 10.4 g/dL (11.5-15.4); Immature Granulocytes % 2.9 % (0-4); Lymphocytes # 0.6 K/mcL (0.6-4.6); Lymphocytes % 4.2 %; Mean Corpuscular HGB Conc 33.9 g/dL (31.6-35.5); Mean Corpuscular Hemoglobin 30.1 pg (28.0-33.3); Mean Corpuscular Volume 88.7 fL (83.0-100.0); Mean Platelet Volume 11.3 fL (9.4-12.4); Monocytes # 0.5 K/mcL (0.0-1.3); Monocytes % 3.2 %; Neutrophils # 12.5 K/mcL (1.6-8.9); Nucleated Red Blood Cells 0.1 /100 WBC (0); Platelet Count 208 K/mcL (140-400); Red Blood Count 3.46 M/mcL (3.82-4.97); Red Cell Distribution Width 13.1 % (11.5-14.5); Segmented Neutrophils % 89.3 %
[2020-10-28 06:56] LABS: Alanine Aminotransferase 87 Units/L (7-52); Albumin/Globulin Ratio 0.9 (1.1-2.2); Alkaline Phosphatase 81 Units/L (34-104); Aspartate Amino Transferase 25 Units/L (13-39); BUN/Creatinine Ratio 65 (6-26); Bilirubin,Total 0.4 mg/dL (0.3-1.0); Blood Urea Nitrogen 51 mg/dL (8-23); Carbon Dioxide 30 mEq/L (23-29); Chloride 94 mEq/L (98-107); Globulin 3.4 g/dL (2.4-3.5); Glucose 137 mg/dL (70-105); Osmolality,Calculated 290 (280-300); Potassium 4.4 mEq/L (3.5-5.1); Sodium 132 mEq/L (136-145); Total Protein 6.4 g/dL (6.4-8.9); eGFR For African Americans > 60 (> 60); eGFR For Non-African Americans > 60 (> 60)
[2020-10-28] MEDS: amLODIPine 5 MG TABLET PO SCH (08:15)
[2020-10-28] MEDS: Dexamethasone Sodium Phos/PF 10 MG/ML VIAL IVP SCH (08:15)
[2020-10-28] MEDS: Cholecalciferol (D-3) 1,000 UNIT (25MCG) TABLET PO SCH (08:15)
[2020-10-28] MEDS: Furosemide 40 MG/4 ML VIAL IVP SCH (08:16)
[2020-10-28 11:39] LABS: ABG Base Excess 7 mEq/L (-2 to 3); ABG HCO3 31 mEq/L (21-27); ABG Oxygen Saturation 87 % (95-98); ABG PCO2 40 mmHg (35-45); ABG PH 7.49 pH Units (7.32-7.45); ABG PO2 48 mmHg (85-104); ABG TCO2 32 mEq/L (20-26)
[2020-10-29] MEDS: Acetaminophen 325 MG TABLET PO PRN (03:25)
[2020-10-29] MEDS: Ipratropium/Albuterol Neb 3 ML IH SCH ×5 (04:00→20:00)
[2020-10-29] MEDS: *HR* Enoxaparin 40 MG/0.4 ML SYRINGE SQ SCH (05:29)
[2020-10-29] MEDS: amLODIPine 5 MG TABLET PO SCH (08:36)
[2020-10-29] MEDS: Dexamethasone Sodium Phos/PF 10 MG/ML VIAL IVP SCH (08:36)
[2020-10-29] MEDS: Furosemide 40 MG/4 ML VIAL IVP SCH ×2 (08:37→11:15)
[2020-10-29] MEDS: Cholecalciferol (D-3) 1,000 UNIT (25MCG) TABLET PO SCH (08:37)
[2020-10-29] MEDS: ALPRAZolam 0.25 MG TABLET PO PRN ×2 (11:15→19:19)
[2020-10-30] MEDS: Ipratropium/Albuterol Neb 3 ML IH SCH ×7 (00:18→23:19)
[2020-10-30] MEDS: Acetaminophen 325 MG TABLET PO PRN (04:02)
[2020-10-30 04:38] LABS: ABG Base Excess 9 mEq/L (-2 to 3); ABG HCO3 33 mEq/L (21-27); ABG Oxygen Saturation 92 % (95-98); ABG PCO2 43 mmHg (35-45); ABG PH 7.49 pH Units (7.32-7.45); ABG PO2 59 mmHg (85-104); ABG TCO2 35 mEq/L (20-26)
[2020-10-30] MEDS: ALPRAZolam 0.25 MG TABLET PO PRN ×2 (05:20→20:37)
[2020-10-30] MEDS: *HR* Enoxaparin 40 MG/0.4 ML SYRINGE SQ SCH (05:20)
[2020-10-30 06:52] LABS: Basophils % 0.2 %; Eosinophils % 0.1 %; Hematocrit 32.8 % (35.3-44.9); Hemoglobin 10.7 g/dL (11.5-15.4); Immature Granulocytes % 2.6 % (0-4); Lymphocytes # 0.5 K/mcL (0.6-4.6); Lymphocytes % 4.5 %; Mean Corpuscular HGB Conc 32.6 g/dL (31.6-35.5); Mean Corpuscular Hemoglobin 29.6 pg (28.0-33.3); Mean Corpuscular Volume 90.9 fL (83.0-100.0); Monocytes # 0.5 K/mcL (0.0-1.3); Monocytes % 4.7 %; Neutrophils # 10.1 K/mcL (1.6-8.9); Platelet Count 248 K/mcL (140-400); Red Blood Count 3.61 M/mcL (3.82-4.97); Red Cell Distribution Width 13.2 % (11.5-14.5); Segmented Neutrophils % 87.9 %; White Blood Count 11.5 K/mcL (4.3-11.1)
[2020-10-30] MEDS: Furosemide 40 MG/4 ML VIAL IVP SCH (09:00)
[2020-10-30] MEDS: Dexamethasone Sodium Phos/PF 10 MG/ML VIAL IVP SCH (09:00)
[2020-10-30] MEDS: amLODIPine 5 MG TABLET PO SCH (09:01)
[2020-10-30] MEDS: Cholecalciferol (D-3) 1,000 UNIT (25MCG) TABLET PO SCH (09:01)
[2020-10-30 09:11] LABS: BUN/Creatinine Ratio 73 (6-26); Blood Urea Nitrogen 73 mg/dL (8-23); Calcium 9.1 mg/dL (8.6-10.3); Carbon Dioxide 29 mEq/L (23-29); Chloride 94 mEq/L (98-107); Glucose 342 mg/dL (70-105); Osmolality,Calculated 315 (280-300); Potassium 3.7 mEq/L (3.5-5.1); Sodium 135 mEq/L (136-145); eGFR For African Americans > 60 (> 60); eGFR For Non-African Americans 54 (> 60)
[2020-10-31 02:31] LABS: BUN/Creatinine Ratio 69 (6-26); Blood Urea Nitrogen 68 mg/dL (8-23); Calcium 9.1 mg/dL (8.6-10.3); Carbon Dioxide 29 mEq/L (23-29); Chloride 98 mEq/L (98-107); Glucose 139 mg/dL (70-105); Osmolality,Calculated 302 (280-300); Potassium 4.5 mEq/L (3.5-5.1); Sodium 135 mEq/L (136-145); eGFR For African Americans > 60 (> 60); eGFR For Non-African Americans 56 (> 60)
[2020-10-31] MEDS: Ipratropium/Albuterol Neb 3 ML IH SCH ×6 (04:07→23:02)
[2020-10-31] MEDS: ALPRAZolam 0.25 MG TABLET PO PRN (05:11)
[2020-10-31] MEDS: *HR* Enoxaparin 40 MG/0.4 ML SYRINGE SQ SCH (05:11)
[2020-10-31 08:54] LABS: Thyroid Stimulating Hormone 1.357 mcIU/mL (0.340-5.600)
[2020-10-31] MEDS: Dexamethasone Sodium Phos/PF 10 MG/ML VIAL IVP SCH (11:39)
[2020-10-31] MEDS: amLODIPine 5 MG TABLET PO SCH (11:39)
[2020-10-31] MEDS: Cholecalciferol (D-3) 1,000 UNIT (25MCG) TABLET PO SCH (11:39)
[2020-10-31] MEDS: Furosemide 40 MG/4 ML VIAL IVP SCH (11:40)
[2020-10-31] MEDS: GuaiFENesin Liq 200 MG/10 ML UDC PO SCH ×2 (11:44→19:24)
[2020-10-31 13:10] LABS: Estimated Average Glucose 148 mg/dl; Hemoglobin A1C 6.8 %
[2020-11-01] MEDS: GuaiFENesin Liq 200 MG/10 ML UDC PO SCH ×4 (00:25→18:06)
[2020-11-01] MEDS: Ipratropium/Albuterol Neb 3 ML IH SCH ×6 (04:18→23:25)
[2020-11-01] MEDS: *HR* Enoxaparin 40 MG/0.4 ML SYRINGE SQ SCH (05:16)
[2020-11-01] MEDS: Acetaminophen 325 MG TABLET PO PRN (06:30)
[2020-11-01 07:38] LABS: Basophils # 0.1 K/mcL (0.0-0.2); Basophils % 0.4 %; Eosinophils % 0.2 %; Hematocrit 33.2 % (35.3-44.9); Hemoglobin 10.5 g/dL (11.5-15.4); Immature Granulocytes % 4.7 % (0-4); Lymphocytes # 0.5 K/mcL (0.6-4.6); Mean Corpuscular HGB Conc 31.6 g/dL (31.6-35.5); Mean Corpuscular Hemoglobin 28.8 pg (28.0-33.3); Mean Corpuscular Volume 91.2 fL (83.0-100.0); Mean Platelet Volume 10.4 fL (9.4-12.4); Monocytes # 0.5 K/mcL (0.0-1.3); Monocytes % 3.7 %; Neutrophils # 11.5 K/mcL (1.6-8.9); Platelet Count 236 K/mcL (140-400); Red Blood Count 3.64 M/mcL (3.82-4.97); White Blood Count 13.2 K/mcL (4.3-11.1)
[2020-11-01 07:57] LABS: BUN/Creatinine Ratio 78 (6-26); Blood Urea Nitrogen 69 mg/dL (8-23); Calcium 9.3 mg/dL (8.6-10.3); Carbon Dioxide 30 mEq/L (23-29); Chloride 93 mEq/L (98-107); Glucose 278 mg/dL (70-105); Osmolality,Calculated 306 (280-300); Potassium 3.8 mEq/L (3.5-5.1); Sodium 133 mEq/L (136-145); eGFR For African Americans > 60 (> 60); eGFR For Non-African Americans > 60 (> 60)
[2020-11-01] MEDS: amLODIPine 5 MG TABLET PO SCH (10:25)
[2020-11-01] MEDS: Furosemide 40 MG/4 ML VIAL IVP SCH (10:25)
[2020-11-01] MEDS: Cholecalciferol (D-3) 1,000 UNIT (25MCG) TABLET PO SCH (10:25)
[2020-11-01] MEDS: Dexamethasone Sodium Phos/PF 10 MG/ML VIAL IVP SCH (10:26)
[2020-11-01] MEDS: Acetylcysteine 10% 2 ML INHSOL IH SCH ×4 (12:00→23:26)
[2020-11-02] MEDS: GuaiFENesin Liq 200 MG/10 ML UDC PO SCH ×5 (00:33→18:08)
[2020-11-02] MEDS: Ipratropium/Albuterol Neb 3 ML IH SCH ×6 (04:08→23:05)
[2020-11-02] MEDS: Acetylcysteine 10% 2 ML INHSOL IH SCH ×6 (04:09→23:05)
[2020-11-02] MEDS: *HR* Enoxaparin 40 MG/0.4 ML SYRINGE SQ SCH (06:43)
[2020-11-02] MEDS: Dexamethasone Sodium Phos/PF 10 MG/ML VIAL IVP SCH (08:53)
[2020-11-02] MEDS: Furosemide 40 MG/4 ML VIAL IVP SCH (08:53)
[2020-11-02] MEDS: amLODIPine 5 MG TABLET PO SCH (08:54)
[2020-11-02] MEDS: Cholecalciferol (D-3) 1,000 UNIT (25MCG) TABLET PO SCH (08:57)
[2020-11-03] MEDS: GuaiFENesin Liq 200 MG/10 ML UDC PO SCH ×5 (00:24→23:55)
[2020-11-03] MEDS: Acetaminophen 325 MG TABLET PO PRN (00:24)
[2020-11-03 02:35] LABS: Basophils # 0.1 K/mcL (0.0-0.2); Basophils % 0.5 %; Eosinophils % 0.1 %; Hematocrit 33.7 % (35.3-44.9); Hemoglobin 11.1 g/dL (11.5-15.4); Immature Granulocytes % 5.4 % (0-4); Lymphocytes # 0.6 K/mcL (0.6-4.6); Lymphocytes % 4.4 %; Mean Corpuscular HGB Conc 32.9 g/dL (31.6-35.5); Mean Corpuscular Hemoglobin 29.5 pg (28.0-33.3); Mean Corpuscular Volume 89.6 fL (83.0-100.0); Mean Platelet Volume 9.9 fL (9.4-12.4); Monocytes # 0.7 K/mcL (0.0-1.3); Monocytes % 5.1 %; Neutrophils # 11.8 K/mcL (1.6-8.9); Platelet Count 233 K/mcL (140-400); Red Blood Count 3.76 M/mcL (3.82-4.97); Red Cell Distribution Width 12.7 % (11.5-14.5); Segmented Neutrophils % 84.5 %; White Blood Count 13.9 K/mcL (4.3-11.1)
[2020-11-03 02:51] LABS: BUN/Creatinine Ratio 65 (6-26); Blood Urea Nitrogen 67 mg/dL (8-23); Calcium 9.1 mg/dL (8.6-10.3); Carbon Dioxide 35 mEq/L (23-29); Chloride 94 mEq/L (98-107); Glucose 138 mg/dL (70-105); Osmolality,Calculated 306 (280-300); Sodium 137 mEq/L (136-145); eGFR For African Americans > 60 (> 60); eGFR For Non-African Americans 53 (> 60)
[2020-11-03 03:23] LABS: Platelet Estimate Normal (Normal)
[2020-11-03] MEDS: Ipratropium/Albuterol Neb 3 ML IH SCH ×6 (04:23→23:25)
[2020-11-03] MEDS: Acetylcysteine 10% 2 ML INHSOL IH SCH ×6 (04:24→23:25)
[2020-11-03] MEDS: *HR* Enoxaparin 40 MG/0.4 ML SYRINGE SQ SCH (05:40)
[2020-11-03] MEDS: Cholecalciferol (D-3) 1,000 UNIT (25MCG) TABLET PO SCH (08:30)
[2020-11-03] MEDS: amLODIPine 5 MG TABLET PO SCH (08:31)
[2020-11-03] MEDS: Dexamethasone Sodium Phos/PF 10 MG/ML VIAL IVP SCH (08:31)
[2020-11-03] MEDS: Furosemide 40 MG/4 ML VIAL IVP SCH (08:32)
[2020-11-03] MEDS: Sennosides/Docusate Sodium TABLET PO SCH ×2 (10:55→20:13)
[2020-11-03] MEDS: Budesonide Neb 0.5 MG/2 ML IH SCH ×2 (14:15→19:41)
[2020-11-04] MEDS: Ipratropium/Albuterol Neb 3 ML IH SCH ×6 (03:38→23:35)
[2020-11-04] MEDS: Acetylcysteine 10% 2 ML INHSOL IH SCH ×6 (03:38→23:35)
[2020-11-04] MEDS: *HR* Enoxaparin 40 MG/0.4 ML SYRINGE SQ SCH (05:27)
[2020-11-04] MEDS: GuaiFENesin Liq 200 MG/10 ML UDC PO SCH ×4 (05:27→23:23)
[2020-11-04] MEDS: Budesonide Neb 0.5 MG/2 ML IH SCH ×2 (07:20→23:35)
[2020-11-04] MEDS: Cholecalciferol (D-3) 1,000 UNIT (25MCG) TABLET PO SCH (08:15)
[2020-11-04] MEDS: amLODIPine 5 MG TABLET PO SCH (08:15)
[2020-11-04] MEDS: Sennosides/Docusate Sodium TABLET PO SCH ×3 (08:15→19:30)
[2020-11-04] MEDS: Dexamethasone Sodium Phos/PF 10 MG/ML VIAL IVP SCH (08:17)
[2020-11-04] MEDS: Furosemide 40 MG/4 ML VIAL IVP SCH (08:17)
[2020-11-04 11:40] LABS: ABG Base Excess 12 mEq/L (-2 to 3); ABG HCO3 37 mEq/L (21-27); ABG Oxygen Saturation 88 % (95-98); ABG PCO2 51 mmHg (35-45); ABG PH 7.48 pH Units (7.32-7.45); ABG PO2 52 mmHg (85-104); ABG TCO2 39 mEq/L (20-26)
[2020-11-04 14:51] LABS: Alanine Aminotransferase 67 Units/L (7-52); Albumin 3.3 g/dL (3.5-5.7); Albumin/Globulin Ratio 0.9 (1.1-2.2); Alkaline Phosphatase 113 Units/L (34-104); Aspartate Amino Transferase 27 Units/L (13-39); BUN/Creatinine Ratio 58 (6-26); Bilirubin,Total 0.7 mg/dL (0.3-1.0); Blood Urea Nitrogen 57 mg/dL (8-23); Calcium 9.1 mg/dL (8.6-10.3); Carbon Dioxide 33 mEq/L (23-29); Chloride 89 mEq/L (98-107); Globulin 3.5 g/dL (2.4-3.5); Glucose 287 mg/dL (70-105); Osmolality,Calculated 304 (280-300); Potassium 3.5 mEq/L (3.5-5.1); Sodium 134 mEq/L (136-145); Total Protein 6.8 g/dL (6.4-8.9); eGFR For African Americans > 60 (> 60); eGFR For Non-African Americans 56 (> 60)
[2020-11-04 14:57] LABS: Basophils # 0.1 K/mcL (0.0-0.2); Basophils % 0.4 %; Eosinophils % 0.1 %; Hematocrit 34.5 % (35.3-44.9); Hemoglobin 11.4 g/dL (11.5-15.4); Immature Granulocytes % 3.5 % (0-4); Lymphocytes # 0.4 K/mcL (0.6-4.6); Lymphocytes % 2.7 %; Mean Corpuscular Hemoglobin 29.2 pg (28.0-33.3); Mean Corpuscular Volume 88.2 fL (83.0-100.0); Mean Platelet Volume 10.6 fL (9.4-12.4); Monocytes # 0.3 K/mcL (0.0-1.3); Monocytes % 2.5 %; Neutrophils # 12.2 K/mcL (1.6-8.9); Platelet Count 223 K/mcL (140-400); Red Blood Count 3.91 M/mcL (3.82-4.97); Segmented Neutrophils % 90.8 %; White Blood Count 13.4 K/mcL (4.3-11.1)
[2020-11-04] MEDS ORDERED: polyethylene glycoL 3350 17 GM POWD.PACK PO PRN (18:38)
[2020-11-05] MEDS: Acetylcysteine 10% 2 ML INHSOL IH SCH ×6 (03:38→23:42)
[2020-11-05] MEDS: Ipratropium/Albuterol Neb 3 ML IH SCH ×6 (03:38→23:42)
[2020-11-05] MEDS: *HR* Enoxaparin 40 MG/0.4 ML SYRINGE SQ SCH (05:07)
[2020-11-05] MEDS: GuaiFENesin Liq 200 MG/10 ML UDC PO SCH ×3 (05:07→17:50)
[2020-11-05] MEDS ORDERED: Bisacodyl 10 MG RECTAL SUPPOSITORY RC PRN (06:31)
[2020-11-05] MEDS: Budesonide Neb 0.5 MG/2 ML IH SCH ×2 (07:20→19:47)
[2020-11-05] MEDS: Furosemide 40 MG/4 ML VIAL IVP SCH (07:48)
[2020-11-05] MEDS: Sennosides/Docusate Sodium TABLET PO SCH ×2 (07:49→21:00)
[2020-11-05] MEDS: amLODIPine 5 MG TABLET PO SCH (07:49)
[2020-11-05] MEDS: Cholecalciferol (D-3) 1,000 UNIT (25MCG) TABLET PO SCH (07:49)
[2020-11-05] MEDS: Dexamethasone Sodium Phos/PF 10 MG/ML VIAL IVP SCH (07:49)
[2020-11-05 10:54] LABS: Basophils # 0.1 K/mcL (0.0-0.2); Basophils % 0.3 %; Eosinophils % 0.1 %; Hematocrit 33.5 % (35.3-44.9); Hemoglobin 11.4 g/dL (11.5-15.4); Immature Granulocytes % 3.2 % (0-4); Lymphocytes # 0.5 K/mcL (0.6-4.6); Lymphocytes % 2.5 %; Mean Corpuscular Hemoglobin 29.5 pg (28.0-33.3); Mean Corpuscular Volume 86.6 fL (83.0-100.0); Mean Platelet Volume 10.2 fL (9.4-12.4); Monocytes # 0.8 K/mcL (0.0-1.3); Neutrophils # 17.2 K/mcL (1.6-8.9); Platelet Count 237 K/mcL (140-400); Red Blood Count 3.87 M/mcL (3.82-4.97); Red Cell Distribution Width 13.1 % (11.5-14.5); Segmented Neutrophils % 89.9 %; White Blood Count 19.2 K/mcL (4.3-11.1)
[2020-11-05] MEDS ORDERED: Morphine Sulfate 2 MG/ML SYRINGE IVP ONE (11:03)
[2020-11-05 11:11] LABS: BUN/Creatinine Ratio 66 (6-26); Blood Urea Nitrogen 64 mg/dL (8-23); Carbon Dioxide 34 mEq/L (23-29); Chloride 91 mEq/L (98-107); Glucose 184 mg/dL (70-105); Osmolality,Calculated 303 (280-300); Potassium 3.2 mEq/L (3.5-5.1); Sodium 135 mEq/L (136-145); eGFR For African Americans > 60 (> 60); eGFR For Non-African Americans 56 (> 60)
[2020-11-05] MEDS ORDERED: Dextrose Gel 15 GM/37.5 ML TUBE PO PRN ×2 (17:04)
[2020-11-05] MEDS ORDERED: D5% in Water 1,000 ML IVC PRN (17:04)
[2020-11-05] MEDS ORDERED: *HR* Dextrose 50 % in Water (Vial) 50 ML VIAL IVP PRN (17:04)
[2020-11-05] MEDS: Acetaminophen 325 MG TABLET PO PRN ×2 (17:49→23:35)
[2020-11-05] MEDS: Insulin LISPRO 300 UNITS/3 ML VIAL SUBQ SCH (21:00)
[2020-11-06] MEDS: Ipratropium/Albuterol Neb 3 ML IH SCH ×5 (03:39→20:24)
[2020-11-06] MEDS: Acetylcysteine 10% 2 ML INHSOL IH SCH ×5 (03:39→20:24)
[2020-11-06] MEDS: *HR* Enoxaparin 40 MG/0.4 ML SYRINGE SQ SCH (05:56)
[2020-11-06] MEDS: GuaiFENesin Liq 200 MG/10 ML UDC PO SCH ×4 (05:56→18:09)
[2020-11-06] MEDS: Acetaminophen 325 MG TABLET PO PRN ×2 (06:13→15:12)
[2020-11-06 06:50] LABS: Basophils # 0.1 K/mcL (0.0-0.2); Basophils % 0.3 %; Eosinophils % 0.1 %; Hematocrit 34.3 % (35.3-44.9); Hemoglobin 11.6 g/dL (11.5-15.4); Immature Granulocytes % 3.3 % (0-4); Lymphocytes # 0.9 K/mcL (0.6-4.6); Lymphocytes % 4.2 %; Mean Corpuscular HGB Conc 33.8 g/dL (31.6-35.5); Mean Corpuscular Hemoglobin 30.1 pg (28.0-33.3); Mean Corpuscular Volume 88.9 fL (83.0-100.0); Mean Platelet Volume 10.2 fL (9.4-12.4); Monocytes # 0.9 K/mcL (0.0-1.3); Monocytes % 4.5 %; Neutrophils # 18.5 K/mcL (1.6-8.9); Nucleated Red Blood Cells 0.1 /100 WBC (0); Platelet Count 221 K/mcL (140-400); Red Blood Count 3.86 M/mcL (3.82-4.97); Red Cell Distribution Width 13.1 % (11.5-14.5); Segmented Neutrophils % 87.6 %; White Blood Count 21.1 K/mcL (4.3-11.1)
[2020-11-06] MEDS: Budesonide Neb 0.5 MG/2 ML IH SCH ×3 (07:29→20:24)
[2020-11-06 08:16] LABS: BUN/Creatinine Ratio 64 (6-26); Blood Urea Nitrogen 63 mg/dL (8-23); Calcium 8.5 mg/dL (8.6-10.3); Carbon Dioxide 32 mEq/L (23-29); Chloride 95 mEq/L (98-107); Glucose 125 mg/dL (70-105); Osmolality,Calculated 301 (280-300); Potassium 3.4 mEq/L (3.5-5.1); Sodium 136 mEq/L (136-145); eGFR For African Americans > 60 (> 60); eGFR For Non-African Americans 56 (> 60)
[2020-11-06] MEDS: Insulin LISPRO 300 UNITS/3 ML VIAL SUBQ SCH ×4 (08:21→20:38)
[2020-11-06] MEDS: amLODIPine 5 MG TABLET PO SCH (08:28)
[2020-11-06] MEDS: Cholecalciferol (D-3) 1,000 UNIT (25MCG) TABLET PO SCH (08:28)
[2020-11-06] MEDS: Sennosides/Docusate Sodium TABLET PO SCH ×2 (08:28→20:23)
[2020-11-06] MEDS: Furosemide 40 MG/4 ML VIAL IVP SCH (08:30)
[2020-11-06] MEDS: Dexamethasone Sodium Phos/PF 10 MG/ML VIAL IVP SCH (08:38)
[2020-11-06] MEDS ORDERED: Menthol 1 EACH LOZENGE PO PRN (09:00)
[2020-11-06] MEDS: Doxycycline 100 MG CAPSULE PO SCH (18:08)
[2020-11-07] MEDS: Ipratropium/Albuterol Neb 3 ML IH SCH ×7 (00:05→23:47)
[2020-11-07] MEDS: Acetylcysteine 10% 2 ML INHSOL IH SCH ×7 (00:05→23:48)
[2020-11-07] MEDS: Acetaminophen 325 MG TABLET PO PRN (00:34)
[2020-11-07] MEDS: GuaiFENesin Liq 200 MG/10 ML UDC PO SCH ×4 (00:38→17:00)
[2020-11-07 01:13] LABS: Basophils # 0.1 K/mcL (0.0-0.2); Basophils % 0.4 %; Hematocrit 33.9 % (35.3-44.9); Hemoglobin 11.4 g/dL (11.5-15.4); Immature Granulocytes % 4.4 % (0-4); Lymphocytes # 0.8 K/mcL (0.6-4.6); Lymphocytes % 3.8 %; Mean Corpuscular HGB Conc 33.6 g/dL (31.6-35.5); Mean Corpuscular Hemoglobin 29.1 pg (28.0-33.3); Mean Corpuscular Volume 86.5 fL (83.0-100.0); Mean Platelet Volume 10.2 fL (9.4-12.4); Monocytes # 0.9 K/mcL (0.0-1.3); Monocytes % 4.3 %; Neutrophils # 18.8 K/mcL (1.6-8.9); Nucleated Red Blood Cells 0.1 /100 WBC (0); Platelet Count 228 K/mcL (140-400); Red Blood Count 3.92 M/mcL (3.82-4.97); Red Cell Distribution Width 13.2 % (11.5-14.5); Segmented Neutrophils % 87.1 %; White Blood Count 21.6 K/mcL (4.3-11.1)
[2020-11-07 01:24] LABS: BUN/Creatinine Ratio 72 (6-26); Blood Urea Nitrogen 68 mg/dL (8-23); Calcium 8.9 mg/dL (8.6-10.3); Carbon Dioxide 35 mEq/L (23-29); Chloride 91 mEq/L (98-107); Glucose 87 mg/dL (70-105); Osmolality,Calculated 297 (280-300); Potassium 3.8 mEq/L (3.5-5.1); Sodium 134 mEq/L (136-145); eGFR For African Americans > 60 (> 60); eGFR For Non-African Americans 58 (> 60)
[2020-11-07] MEDS: Doxycycline 100 MG CAPSULE PO SCH ×2 (05:52→17:00)
[2020-11-07] MEDS: *HR* Enoxaparin 40 MG/0.4 ML SYRINGE SQ SCH (05:53)
[2020-11-07 06:08] LABS: Bilirubin,Urine Negative (Negative); Blood,Urine Negative (Negative); Clarity,Urine Clear (Clear); Color,Urine Light-Yellow (Yellow); Glucose,Urine (UA) Normal (Normal); Ketones,Urine Negative (Negative); Leukocyte Esterase,Urine Negative (Negative); Nitrite,Urine Negative (Negative); PH,Urine 5.5 pH Units (5.0-8.0); Protein,Urine Negative (Neg-Trace); Urobilinogen,Urine Normal (Normal)
[2020-11-07] MEDS: amLODIPine 5 MG TABLET PO SCH (08:25)
[2020-11-07] MEDS: Furosemide 40 MG/4 ML VIAL IVP SCH (08:25)
[2020-11-07] MEDS: Sennosides/Docusate Sodium TABLET PO SCH ×2 (08:25→20:28)
[2020-11-07] MEDS: Cholecalciferol (D-3) 1,000 UNIT (25MCG) TABLET PO SCH (08:25)
[2020-11-07] MEDS: Insulin LISPRO 300 UNITS/3 ML VIAL SUBQ SCH ×4 (08:26→20:28)
[2020-11-07] MEDS: Budesonide Neb 0.5 MG/2 ML IH SCH ×2 (10:47→19:14)
[2020-11-07] MEDS: Benzonatate 100 MG CAPSULE PO PRN (17:00)
[2020-11-08] MEDS: GuaiFENesin Liq 200 MG/10 ML UDC PO SCH ×5 (00:59→16:52)
[2020-11-08] MEDS: Acetaminophen 325 MG TABLET PO PRN (01:47)
[2020-11-08] MEDS: Acetylcysteine 10% 2 ML INHSOL IH SCH ×6 (04:44→23:30)
[2020-11-08] MEDS: Ipratropium/Albuterol Neb 3 ML IH SCH ×6 (04:44→23:31)
[2020-11-08 05:42] LABS: Basophils # 0.1 K/mcL (0.0-0.2); Basophils % 0.5 %; Eosinophils # 0.1 K/mcL (0.0-0.6); Eosinophils % 0.5 %; Hematocrit 31.6 % (35.3-44.9); Hemoglobin 10.9 g/dL (11.5-15.4); Immature Granulocytes % 5.1 % (0-4); Lymphocytes # 1.1 K/mcL (0.6-4.6); Mean Corpuscular HGB Conc 34.5 g/dL (31.6-35.5); Mean Corpuscular Hemoglobin 29.9 pg (28.0-33.3); Mean Corpuscular Volume 86.6 fL (83.0-100.0); Mean Platelet Volume 10.1 fL (9.4-12.4); Monocytes % 5.2 %; Neutrophils # 15.4 K/mcL (1.6-8.9); Nucleated Red Blood Cells 0.2 /100 WBC (0); Platelet Count 179 K/mcL (140-400); Red Blood Count 3.65 M/mcL (3.82-4.97); Red Cell Distribution Width 13.1 % (11.5-14.5); Segmented Neutrophils % 82.7 %; White Blood Count 18.6 K/mcL (4.3-11.1)
[2020-11-08 05:55] LABS: BUN/Creatinine Ratio 71 (6-26); Blood Urea Nitrogen 74 mg/dL (8-23); Calcium 8.9 mg/dL (8.6-10.3); Carbon Dioxide 33 mEq/L (23-29); Chloride 89 mEq/L (98-107); Glucose 96 mg/dL (70-105); Osmolality,Calculated 296 (280-300); Potassium 3.2 mEq/L (3.5-5.1); Sodium 132 mEq/L (136-145); eGFR For African Americans > 60 (> 60); eGFR For Non-African Americans 52 (> 60)
[2020-11-08] MEDS: Doxycycline 100 MG CAPSULE PO SCH ×3 (06:07→16:52)
[2020-11-08] MEDS: *HR* Enoxaparin 40 MG/0.4 ML SYRINGE SQ SCH ×2 (06:07→06:17)
[2020-11-08 06:20] LABS: Platelet Estimate Normal (Normal); Smudge Cells Present (Not Present); Toxic Granulation Present (Not Present)
[2020-11-08] MEDS: Budesonide Neb 0.5 MG/2 ML IH SCH ×2 (07:35→19:36)
[2020-11-08] MEDS: Insulin LISPRO 300 UNITS/3 ML VIAL SUBQ SCH ×4 (08:25→21:56)
[2020-11-08] MEDS: amLODIPine 5 MG TABLET PO SCH (11:27)
[2020-11-08] MEDS: Cholecalciferol (D-3) 1,000 UNIT (25MCG) TABLET PO SCH (11:27)
[2020-11-08] MEDS: Sennosides/Docusate Sodium TABLET PO SCH ×2 (11:27→22:13)
[2020-11-08] MEDS: Furosemide 40 MG/4 ML VIAL IVP SCH (11:28)
[2020-11-08] MEDS ORDERED: *HR* LORazepam 2 MG/ML VIAL IVP PRN (11:35)
[2020-11-08] MEDS: Morphine Sulfate Oral CONC 10 MG/0.5 ML ORAL.SYG SL PRN (12:28)
[2020-11-08] MEDS: Albuterol 2.5 MG/3 ML NEBULIZER IH PRN (21:08)
[2020-11-09] MEDS: GuaiFENesin Liq 200 MG/10 ML UDC PO SCH ×4 (01:19→18:11)
[2020-11-09] MEDS: Ipratropium/Albuterol Neb 3 ML IH SCH ×5 (04:07→20:50)
[2020-11-09] MEDS: Acetylcysteine 10% 2 ML INHSOL IH SCH ×5 (04:07→20:50)
[2020-11-09] MEDS: Albuterol 2.5 MG/3 ML NEBULIZER IH PRN (04:26)
[2020-11-09] MEDS: *HR* Enoxaparin 40 MG/0.4 ML SYRINGE SQ SCH (04:48)
[2020-11-09] MEDS: Doxycycline 100 MG CAPSULE PO SCH ×3 (04:49→18:14)
[2020-11-09] MEDS: Insulin LISPRO 300 UNITS/3 ML VIAL SUBQ SCH ×4 (07:28→21:01)
[2020-11-09] MEDS: Budesonide Neb 0.5 MG/2 ML IH SCH ×3 (07:41→20:50)
[2020-11-09] MEDS: Sennosides/Docusate Sodium TABLET PO SCH ×3 (08:34→21:19)
[2020-11-09] MEDS: Furosemide 40 MG/4 ML VIAL IVP SCH (08:34)
[2020-11-09] MEDS: amLODIPine 5 MG TABLET PO SCH ×2 (08:34→15:46)
[2020-11-09] MEDS: Cholecalciferol (D-3) 1,000 UNIT (25MCG) TABLET PO SCH ×2 (08:34→15:46)
[2020-11-09] MEDS: Morphine Sulfate Oral CONC 10 MG/0.5 ML ORAL.SYG SL PRN ×3 (12:36→19:19)
[2020-11-09 14:26] LABS: BUN/Creatinine Ratio 64 (6-26); Blood Urea Nitrogen 54 mg/dL (8-23); Calcium 8.7 mg/dL (8.6-10.3); Carbon Dioxide 33 mEq/L (23-29); Chloride 88 mEq/L (98-107); Glucose 104 mg/dL (70-105); Osmolality,Calculated 287 (280-300); Potassium 3.1 mEq/L (3.5-5.1); Sodium 131 mEq/L (136-145); eGFR For African Americans > 60 (> 60); eGFR For Non-African Americans > 60 (> 60)
[2020-11-09] MEDS: Magic Mouthwash 10 ML UD Cup PO SCH (16:18)
[2020-11-10] MEDS: Morphine Sulfate Oral CONC 10 MG/0.5 ML ORAL.SYG SL PRN ×5 (00:02→13:08)
[2020-11-10] MEDS: Ipratropium/Albuterol Neb 3 ML IH SCH ×6 (00:40→20:19)
[2020-11-10] MEDS: Acetylcysteine 10% 2 ML INHSOL IH SCH ×6 (00:53→20:19)
[2020-11-10] MEDS: GuaiFENesin Liq 200 MG/10 ML UDC PO SCH ×4 (02:09→18:26)
[2020-11-10 05:05] LABS: Basophils # 0.1 K/mcL (0.0-0.2); Basophils % 0.4 %; Eosinophils # 0.2 K/mcL (0.0-0.6); Eosinophils % 1.5 %; Hematocrit 28.1 % (35.3-44.9); Hemoglobin 9.5 g/dL (11.5-15.4); Immature Granulocytes % 4.8 % (0-4); Lymphocytes # 0.5 K/mcL (0.6-4.6); Lymphocytes % 3.2 %; Mean Corpuscular HGB Conc 33.8 g/dL (31.6-35.5); Mean Corpuscular Hemoglobin 29.6 pg (28.0-33.3); Mean Corpuscular Volume 87.5 fL (83.0-100.0); Monocytes # 0.6 K/mcL (0.0-1.3); Monocytes % 3.6 %; Nucleated Red Blood Cells 0.1 /100 WBC (0); Platelet Count 129 K/mcL (140-400); Red Blood Count 3.21 M/mcL (3.82-4.97); Segmented Neutrophils % 86.5 %; White Blood Count 15.1 K/mcL (4.3-11.1)
[2020-11-10 05:22] LABS: BUN/Creatinine Ratio 65 (6-26); Blood Urea Nitrogen 48 mg/dL (8-23); Calcium 7.9 mg/dL (8.6-10.3); Carbon Dioxide 28 mEq/L (23-29); Chloride 91 mEq/L (98-107); Glucose 73 mg/dL (70-105); Osmolality,Calculated 283 (280-300); Potassium 2.9 mEq/L (3.5-5.1); Sodium 131 mEq/L (136-145); eGFR For African Americans > 60 (> 60); eGFR For Non-African Americans > 60 (> 60)
[2020-11-10] MEDS ORDERED: Potassium Chloride Elixir 20 MEQ/15 ML UDC PO ONE (05:31)
[2020-11-10] MEDS ORDERED: Potassium Chloride 20 MEQ, Lidocaine 1% 2 ML in 0.9 % Sodium Chloride 250 ML IVPB ONE (06:07)
[2020-11-10] MEDS: *HR* Enoxaparin 40 MG/0.4 ML SYRINGE SQ SCH (06:13)
[2020-11-10] MEDS: Doxycycline 100 MG CAPSULE PO SCH ×2 (06:24→18:26)
[2020-11-10] MEDS: Insulin LISPRO 300 UNITS/3 ML VIAL SUBQ SCH ×3 (07:59→17:02)
[2020-11-10] MEDS: Cholecalciferol (D-3) 1,000 UNIT (25MCG) TABLET PO SCH (08:57)
[2020-11-10] MEDS: Furosemide 40 MG/4 ML VIAL IVP SCH (08:57)
[2020-11-10] MEDS: Sennosides/Docusate Sodium TABLET PO SCH (08:57)
[2020-11-10] MEDS: amLODIPine 5 MG TABLET PO SCH (08:57)
[2020-11-10] MEDS: Magic Mouthwash 10 ML UD Cup PO SCH ×3 (09:00→17:02)
[2020-11-10 09:06] VITALS: BP 97/52; PULSE 70; TEMP 97.5
[2020-11-10] MEDS: Budesonide Neb 0.5 MG/2 ML IH SCH ×2 (09:49→20:19)
[2020-11-10] MEDS ORDERED: Atropine 1% Opth Drops 100 DROP/5 ML BOTTLE SL PRN (10:20)
[2020-11-10] MEDS ORDERED: Morphine Sulfate Oral CONC 10 MG/0.5 ML ORAL.SYG SL SCH ×3 (12:00→20:00)
[2020-11-10] MEDS: *HR* FentaNYL (PF) 100 MCG/2 ML VIAL IVP PRN ×4 (12:07→17:58)
[2020-11-10 13:10] VITALS: O2SAT 82
[2020-11-10] MEDS ORDERED: Morphine Sulfate Oral CONC 10 MG/0.5 ML ORAL.SYG SL PRN ×2 (14:00→17:09)
[2020-11-10] MEDS ORDERED: *HR* FentaNYL (PF) 100 MCG/2 ML VIAL IVP PRN (18:16)
[2020-11-20 22:40] LABS: BCR-ABL1 Specimen Source NOT SPECIFIED
[2020-11-21 16:09] LABS: BCR-ABL1 Source NOT SPECIFIED
== END 2020-11-10 19:00 | disposition expired | DRG 871 ==
LOC: EMEROOARM 14:08 → 2NENU 14:08 → SUATTDRO 18:11 → 2NENU 18:26
PROVIDERS: ADMIT Internal Medicine; ATTEND General Practice